=== PATIENT | male | born 1950 | race Caucasian/White ===

== ENCOUNTER 2017-09-01 10:21 | Day surgery (SDC) | payer MEDICARE ==
--- NOTE | 2017-08-30 09:18 | CR ---
PREOPERATIVE EVALUATION CONSULTATION: DATE OF CONSULTATION: 07/17/2017 CONSULTING PHYSICIAN: Dr. Hernesto Juarez MD. SURGEON: Dr. Shan Vogt. PROPOSED SURGERY: Cataract extraction, left eye to be completed on 09/01/2017, right eye to be completed on 09/08/2017. CHIEF COMPLAINT: Decreased vision. HISTORY OF PRESENT ILLNESS: This is a very pleasant 67-year-old patient of [facility] who presents today for preoperative evaluation consultation. The patient noted he feels well. Denies any new symptoms or concerns. The patient has no known cardiac issues. He, however, has a number of risk factors including well controlled diabetes, last hemoglobin A1c 6.1, continued cigarette smoking at approximately five cigarettes a day, well treated hypertension and hyperlipidemia. The patient has no history of asthma or obstructive sleep apnea. Again, he is a cigarette smoker. He denies any family history of malignant hyperthermia or other complications of anesthesia. The patient is on a proton pump inhibitor (PPI), however and was found to have gastritis 05/11/2012 in esophagogastroduodenoscopy (EGD). But otherwise, denies any problems on his present medication and is doing well overall. Medical issues were evaluated including his gastroesophageal reflux disease (GERD) symptoms for which he is attempting to wean off PPI, hypertension, diabetes, hyperlipidemia, all appear to be stable. PAST MEDICAL HISTORY: Type 2 diabetes - well controlled. Hemoglobin A1c is 61. Hypertension. Hyperlipidemia. Tobacco abuse. History of gout. History of shingles. Gastroesophageal reflux disease with history of gastritis on EGD 05/11/2012. PAST SURGICAL HISTORY: Tonsillectomy in 1950. Left bunionectomy with Dr. Balbuena. Melanoma in situ left right arm with Dr. Barrett. He follows with Dr. Alvarado. Right knee arthroscope, late . Colonoscopy 09/14/2007. EGD 05/11/2012. MEDICATIONS: - omeprazole 40 mg by mouth daily - transitioning to Pepcid 20 mg daily - I vitamins - Norvasc 5 mg daily - lisinopril 20 mg twice a day - Glucophage XR 500 mg twice a day - simvastatin 20 mg nightly - aspirin 81 mg by mouth daily ALLERGIES: No known drug allergies. FAMILY HISTORY: Mother from some type of cancer, unclear of what kind. Father of lung cancer. SOCIAL HISTORY: The patient is retired. 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 He lives with his , Amairani. They have three grown children. He smokes about five cigarettes a day. He does consume about 3-4 beers a week. No regular exercise. REVIEW OF SYSTEMS: Per history of present illness (HPI). Otherwise 10-system review is negative. PHYSICAL EXAMINATION: VITAL SIGNS: Blood pressure 138/70, pulse 70. He is 5 foot 8 inches, 177 pounds, BMI 26.9. GENERAL: The patient appears at baseline health. He is well, smiling and interactive in no acute distress, nontoxic, alert and oriented times three. HEENT: Pupils equal round, and react to light and accommodation. Extraocular motions intact. No lesion or yellow conjunctiva. Head is atraumatic, normocephalic. Oral cavity/oropharynx are benign. Neck is supple, no lymphadenopathy or thyromegaly. External ears are benign. LUNGS: Clear to auscultation bilaterally. No rales, rhonchi or wheezes. HEART: Regular rate and rhythm. S1, S2. No significant murmur. ABDOMEN: Soft, nontender, nondistended. No organomegaly. EXTREMITIES: No clubbing, cyanosis or edema. NEUROLOGIC: Exam is completely nonfocal. He is alert and oriented times three. Speech is fluent. PREOP TESTING: No preop labs were completed. EKG was completed and shows normal sinus rhythm. No significant abnormalities on 08/17/2017. Recent labs in July 2017 were generally benign. ASSESSMENT/PLAN: 1. Preoperative evaluation consultation: At this point in time, aside from the risks as mentioned in the HPI, the patient otherwise has no active respiratory or pulmonary disease at this point in time. No significant issues to anesthesia in the past. This is a very low risk surgery in a low to intermediate risk patient. He appears to be optimized for surgical intervention. . 2. Cataracts: The patient looks forward to improved vision in undergoing surgery. Preoperative medications including his aspirin will be dictated by the surgeon. 3. Type 2 diabetes, well controlled. Last hemoglobin A1c 6.1. 4. Hypertension: Well controlled on present medication. Will monitor. 5. Gastroesophageal reflux disease, history of gastritis 2011. Has been doing well on PPI but is working on weaning to an H2 estuardo. 6. History of melanoma in situ - is noted that he recently saw Dr. 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 7. Nicotine dependence - discussed the importance of quitting smoking once again. He understands and not interested in assistance at this time. 8. Hyperlipidemia: Doing well on simvastatin. Will continue to monitor. 9. Ongoing care: I am going to see the patient again as scheduled. However, he does appear to be optimized for surgical intervention for cataracts to be completed bilaterally by Dr. Vogt as noted above. If there are any questions or concerns, please call me at [phone].
[~2017-09-01] VITALS: Ht 172.7 cm; Wt 79.9 kg
[~2017-09-01 10:21] MED LIST: AMLO5TAB2 PO; ASPI81TA85 PO; LISI-538 PO; METF500T4 PO; OFLOXACIN 0.3 % (OCUFLOX) OPTH SOL 5ML OS ONE; OMEP40CA2 PO; PHENYLEPHRINE 2.5% OPHTH SOL 2ML OS ONE; PRESCAP6 PO; PROPARACAINE 0.5% OPHTH SOL 15ML OS ONE; SIMV20TA2 PO; TROPICAMIDE 1% OPHTH SOLN 2ML OS ONE
[2017-09-01] MEDS ORDERED: DUOVISC (0.50ML VISCOAT/0.55ML PROVISC) OPHTH KIT As Ordered ONE ×2 (13:27→13:40)
[2017-09-01] MEDS ORDERED: POVIDONE-IODINE 5% OPHTH PREP SOL 30ML As Ordered ONE ×2 (13:27→13:40)
[2017-09-01] MEDS ORDERED: ACETYLCHOLINE OPHTH SOLN 1% 2ML (MIOCHOL-E) As Ordered ONE ×2 (13:27→13:40)
[2017-09-01] MEDS ORDERED: LIDOCAINE 0.75%/EPINEPHRINE 0.025% IN BSS 1ML SYR INTRACAMERAL (OR ONLY) As Ordered ONE ×2 (13:27→13:40)
[2017-09-01] MEDS ORDERED: CEFUROXIME 1MG/0.1ML INTRACAMERAL INJ As Ordered ONE ×2 (13:27→13:40)
[2017-09-01] MEDS ORDERED: BALANCED SALT IRRIGATION SOLUTION 500ML BAG (FOR OR EYE MACHINE) As Ordered ONE (13:27)
[2017-09-01] MEDS ORDERED: MIDAZOLAM INJ 2 MG/2 ML VIAL (J2250) As Ordered ONE (13:48)
[2017-09-01] MEDS ORDERED: fentaNYL 100 MCG/2 ML INJECTION (J3010) As Ordered ONE (13:48)
[2017-09-01 15:00] VITALS: BP 134/70
--- NOTE | 2017-09-02 14:49 | RO ---
DATE OF PROCEDURE: 09/01/2017 PREOPERATIVE DIAGNOSIS: Visually significant nuclear sclerotic cataract left eye. POSTOPERATIVE DIAGNOSIS: Visually significant nuclear sclerotic cataract left eye. PROCEDURE: Cataract extraction with use of phacoemulsification and placement of intraocular lens, AU00T0, 12.5, left eye. SURGEON: Shan Vogt DO PAYMENT REP: ANESTHESIA: Local with monitored anesthesia care (MAC). COMPLICATIONS: None. POSTOPERATIVE CONDITION: Stable. INDICATION FOR SURGERY: Blurred vision left eye affecting patient's activities of daily living. DESCRIPTION OF PROCEDURE: The patient was seen in the preoperative area and properly identified. The correct operative eye was identified and marked. Attention was turned to that eye. The patient received topical antibiotics in the preoperative area. The patient then received topical dilating drops consisting of tropicamide and phenylephrine. The patient was then transferred to the operating room. The correct side was re-identified. The patient received topical anesthetics and antibiotics on the surface of the eye. The eye was prepped and draped in a sterile fashion. The upper and lower eyelids were isolated with Tegaderm tape, and the lids were held open with an adjustable speculum. Using a sideport blade, a paracentesis incision was made. Intraocular preservative-free lidocaine was then injected into the anterior chamber. Viscoelastic was then injected into the anterior chamber through the paracentesis. Using a 2.65 mm sharp-tipped keratome, the anterior chamber was entered via a temporal clear corneal incision. A continuous curvilinear capsulorrhexis was created with the aid of a 26-gauge cystotome and Utrata forceps. Hydrodissection was performed with balanced salt solution (BSS) on a blunt cannula until the nucleus was freely mobile. The crystalline lens was phacoemulsified and aspirated. Additional cohesive viscoelastic was placed into the capsular bag to deepen it. An AU00T0 lens was placed into the capsular bag and confirmed by visualizing the continuous curvilinear capsulorrhexis. Additional irrigation and aspiration was used to remove cortical material and remaining viscoelastic. The clear corneal incision was hydrated with BSS on a blunt cannula. The lens was well positioned. The incisions were then tested for leaks and found to be negative. The eye was then palpated for appropriate pressure and adjusted accordingly with BSS. The eyelid speculum was carefully removed. TobraDex ointment was placed in the eye. An eye patch and shield were then secured over the eye. The patient tolerated the procedure well and was discharged to the recovery unit in a stable condition.
== END 2017-09-01 15:11 | disposition home or self-care (01) ==
LOC: M SDC 10:21
PROVIDERS: ATTEND Ophthalmology
DX: H25.12 Age-related nuclear cataract, left eye (principal); I10 Essential (primary) hypertension; E78.4 Other hyperlipidemia; E11.9 Type 2 diabetes mellitus without complications; F17.210 Nicotine dependence, cigarettes, uncomplicated; Z79.899 Other long term (current) drug therapy
CPT/HCPCS: 66984; J2250; J3010; V2632

== ENCOUNTER 2017-09-08 06:56 | Day surgery (SDC) | payer MEDICARE ==
[~2017-09-08] VITALS: Ht 172.7 cm; Wt 81.2 kg
[~2017-09-08 06:56] MED LIST changes: -OFLOXACIN 0.3 % (OCUFLOX) OPTH SOL 5ML OS ONE; -PHENYLEPHRINE 2.5% OPHTH SOL 2ML OS ONE; -PROPARACAINE 0.5% OPHTH SOL 15ML OS ONE; -TROPICAMIDE 1% OPHTH SOLN 2ML OS ONE
[2017-09-08] MEDS ORDERED: PHENYLEPHRINE 2.5% OPHTH SOL 2ML OD ONE (07:00)
[2017-09-08] MEDS ORDERED: TROPICAMIDE 1% OPHTH SOLN 2ML OD ONE (07:00)
[2017-09-08] MEDS ORDERED: OFLOXACIN 0.3 % (OCUFLOX) OPTH SOL 5ML OD ONE (07:00)
[2017-09-08] MEDS ORDERED: PROPARACAINE 0.5% OPHTH SOL 15ML OD ONE (07:00)
[2017-09-08] MEDS ORDERED: ACETYLCHOLINE OPHTH SOLN 1% 2ML (MIOCHOL-E) As Ordered ONE (08:14)
[2017-09-08] MEDS ORDERED: LIDOCAINE 0.75%/EPINEPHRINE 0.025% IN BSS 1ML SYR INTRACAMERAL (OR ONLY) As Ordered ONE (08:14)
[2017-09-08] MEDS ORDERED: CEFUROXIME 1MG/0.1ML INTRACAMERAL INJ As Ordered ONE (08:14)
[2017-09-08] MEDS ORDERED: DUOVISC (0.50ML VISCOAT/0.55ML PROVISC) OPHTH KIT As Ordered ONE (08:15)
[2017-09-08] MEDS ORDERED: MIDAZOLAM INJ 2 MG/2 ML VIAL (J2250) As Ordered ONE (08:37)
[2017-09-08] MEDS ORDERED: fentaNYL 100 MCG/2 ML INJECTION (J3010) As Ordered ONE (08:38)
[2017-09-08] MEDS ORDERED: BALANCED SALT IRRIGATION SOLUTION 500ML BAG (FOR OR EYE MACHINE) As Ordered ONE (08:50)
[2017-09-08] MEDS ORDERED: POVIDONE-IODINE 5% OPHTH PREP SOL 30ML As Ordered ONE (08:50)
[2017-09-08 09:30] VITALS: BP 127/72
--- NOTE | 2017-09-09 20:22 | RO ---
DATE OF PROCEDURE: 09/08/2017 PREOPERATIVE DIAGNOSIS: Visually significant nuclear sclerotic cataract right eye. POSTOPERATIVE DIAGNOSIS: Visually significant nuclear sclerotic cataract right eye. PROCEDURE: Cataract extraction with use of phacoemulsification and placement of intraocular lens, AU00T0, 14.0 diopters, right eye. SURGEON: Shan Vogt DO RIBBON HAND: ANESTHESIA: Local with monitored anesthesia care (MAC). COMPLICATIONS: None. POSTOPERATIVE CONDITION: Stable. INDICATION FOR SURGERY: Blurred vision right eye affecting patient's activities of daily living. DESCRIPTION OF PROCEDURE: The patient was seen in the preoperative area and properly identified. The correct operative eye was identified and marked. Attention was turned to that eye. The patient received topical antibiotics in the preoperative area. The patient then received topical dilating drops consisting of tropicamide and phenylephrine. The patient was then transferred to the operating room. The correct side was re-identified. The patient received topical anesthetics and antibiotics on the surface of the eye. The eye was prepped and draped in a sterile fashion. The upper and lower eyelids were isolated with Tegaderm tape, and the lids were held open with an adjustable speculum. Using a sideport blade, a paracentesis incision was made. Intraocular preservative-free lidocaine was then injected into the anterior chamber. Viscoelastic was then injected into the anterior chamber through the paracentesis. Using a 2.65 mm sharp-tipped keratome, the anterior chamber was entered via a temporal clear corneal incision. A continuous curvilinear capsulorrhexis was created with the aid of a 26-gauge cystotome and Utrata forceps. Hydrodissection was performed with balanced salt solution (BSS) on a blunt cannula until the nucleus was freely mobile. The crystalline lens was phacoemulsified and aspirated. Additional cohesive viscoelastic was placed into the capsular bag to deepen it. A AU00T0, 14.0 diopters lens was placed into the capsular bag and confirmed by visualizing the continuous curvilinear capsulorrhexis. Additional irrigation and aspiration was used to remove cortical material and remaining viscoelastic. The clear corneal incision was hydrated with BSS on a blunt cannula. The lens was well positioned. The incisions were then tested for leaks and found to be negative. The eye was then palpated for appropriate pressure and adjusted accordingly with BSS. The eyelid speculum was carefully removed. TobraDex ointment was placed in the eye. An eye patch and shield were then secured over the eye. The patient tolerated the procedure well and was discharged to the recovery unit in a stable condition.
== END 2017-09-08 09:46 | disposition home or self-care (01) ==
LOC: M SDC 06:56
PROVIDERS: ATTEND Ophthalmology
DX: H25.11 Age-related nuclear cataract, right eye (principal); E11.9 Type 2 diabetes mellitus without complications; I10 Essential (primary) hypertension; E78.5 Hyperlipidemia, unspecified; K21.9 Gastro-esophageal reflux disease without esophagitis; Z79.82 Long term (current) use of aspirin; Z79.899 Other long term (current) drug therapy; F17.210 Nicotine dependence, cigarettes, uncomplicated
CPT/HCPCS: 66984; J2250; J3010; V2632

== ENCOUNTER 2018-11-29 09:25 | Day surgery (SDC) | payer MEDICARE ==
[~2018-11-29] VITALS: Ht 172.7 cm; Wt 75.7 kg
[~2018-11-29 09:25] MED LIST changes: -AMLO5TAB2 PO; +AMLO5TAB6 PO; +NS 1,000 ML IV ONE
[2018-11-29] MEDS ORDERED: LIDOCAINE 2% INJ 100 MG/5 ML SDV (FOR ANES.) As Ordered ONE (11:04)
[2018-11-29] MEDS ORDERED: PROPOFOL 200 MG/20 ML VIAL As Ordered ONE (11:04)
--- NOTE | 2018-11-29 11:34 | ROOR ---
Patient Name: Jonathan Mariee Procedure Date: 11/29/2018 11:15 AM Date of : 1950 Age: 68 Room: [facility] Gender: Male Note Status: Finalized Procedure: Upper Endoscopy + Biopsies + Balloon Dilatation Indications: Dysphagia Providers: Juan Carlos Vogt MD Referring MD: Hernesto Juarez MD Requesting Provider: Medicines: Monitored Anesthesia Care Complications: No immediate complications. Procedure: Pre-Anesthesia Assessment: - The heart rate, respiratory rate, oxygen saturations, blood pressure, adequacy of pulmonary ventilation, and response to care were monitored throughout the procedure. The Endoscope was introduced through the mouth, and advanced to the second part of duodenum. The upper GI endoscopy was accomplished without difficulty. The patient tolerated the procedure well. Findings: The Z-line was regular and was found 40 cm from the incisors. A TTS dilator was passed through the scope. Dilation with an 18-19-20 mm balloon dilator was performed to 20 mm at the gastroesophageal junction. Localized mild inflammation characterized by congestion (edema) and erythema was found in the gastric antrum. Biopsies were taken with a cold forceps for Helicobacter pylori testing. The exam of the duodenum was otherwise normal. Impression: - Z-line regular, 40 cm from the incisors. - Mucosal changes suspicious for gastritis. Biopsied. - Dilation performed at the gastroesophageal junction. - The examination was otherwise normal. Recommendation: - Patient has a contact number available for emergencies. The signs and symptoms of potential delayed complications were discussed with the patient. Return to normal activities tomorrow. Written discharge instructions were provided to the patient. - Resume previous diet. - Follow an antireflux regimen. - Continue present medications. - Await pathology results. - Telephone GI clinic for pathology results in 1 week. - Return to referring physician. - The findings and recommendations were discussed with the patient's family. Juan Carlos Vogt MD Juan Carlos Vogt MD 11/29/2018 11:33:56 AM This report has been signed electronically. Number of Addenda: 0 Note Initiated On: 11/29/2018 11:15 AM Estimated Blood Loss: Estimated blood loss: none.
--- NOTE | 2018-11-29 11:49 | ROOR ---
Patient Name: Jonathan Mariee Procedure Date: 11/29/2018 11:16 AM Date of : 1950 Age: 68 Room: [facility] Gender: Male Note Status: Finalized Procedure: Total Colonoscopy to Cecum + Cold Snare Polypectomy Indications: Screening for colorectal malignant neoplasm Providers: Juan Carlos Vogt MD Referring MD: Hernetso Juarez MD Requesting Provider: Medicines: Monitored Anesthesia Care Complications: No immediate complications. Procedure: Pre-Anesthesia Assessment: - The heart rate, respiratory rate, oxygen saturations, blood pressure, adequacy of pulmonary ventilation, and response to care were monitored throughout the procedure. The Colonoscope was introduced through the anus and advanced to the cecum, identified by appendiceal orifice and ileocecal valve. The colonoscopy was performed without difficulty. The patient tolerated the procedure well. The quality of the bowel preparation was excellent. Findings: The perianal and digital rectal examinations were normal. Non-bleeding internal hemorrhoids were found during retroflexion. The hemorrhoids were small and Grade I (internal hemorrhoids that do not prolapse). Multiple small and large-mouthed diverticula were found in the recto-sigmoid colon, sigmoid colon and descending colon. A small polyp was found at 20 cm proximal to the anus. The polyp was sessile. The polyp was removed with a cold snare. Resection and retrieval were complete. The exam was otherwise without abnormality on direct and retroflexion views. Impression: - Non-bleeding internal hemorrhoids. - Diverticulosis in the recto-sigmoid colon, in the sigmoid colon and in the descending colon. - One small polyp at 20 cm proximal to the anus, removed with a cold snare. Resected and retrieved. - The examination was otherwise normal on direct and retroflexion views. - The exam was otherwise normal to the cecum. Recommendation: - Patient has a contact number available for emergencies. The signs and symptoms of potential delayed complications were discussed with the patient. Return to normal activities tomorrow. Written discharge instructions were provided to the patient. - High fiber diet. - Discharge patient to home. - Continue present medications. - Await pathology results. - Telephone GI clinic for pathology results in 1 week. - Repeat colonoscopy for surveillance based on pathology results. - Return to referring physician. - The findings and recommendations were discussed with the patient's family. Juan Carlos Vogt MD Juan Carlos Vogt MD 11/29/2018 11:49:36 AM This report has been signed electronically. Number of Addenda: 0 Note Initiated On: 11/29/2018 11:16 AM Estimated Blood Loss: Estimated blood loss: none.
[2018-11-29 12:15] VITALS: BP 117/72
== END 2018-11-29 12:29 | disposition home or self-care (01) ==
LOC: M OPP 09:25
PROVIDERS: ATTEND Internal Medicine Gastroenterology
DX: Z12.11 Encounter for screening for malignant neoplasm of colon (principal); K64.0 First degree hemorrhoids; D12.6 Benign neoplasm of colon, unspecified; K57.30 Diverticulosis of large intestine without perforation or abscess without bleeding; K31.89 Other diseases of stomach and duodenum; R13.10 Dysphagia, unspecified; R12 Heartburn; F17.210 Nicotine dependence, cigarettes, uncomplicated; Z79.82 Long term (current) use of aspirin; Z79.84 Long term (current) use of oral hypoglycemic drugs; Z79.899 Other long term (current) drug therapy

== ENCOUNTER → 2019-05-28 | Outpatient (REF) | payer MEDICARE ==
[~2019-05-28] MED LIST changes: -NS 1,000 ML IV ONE
[2019-05-28 13:48] LABS: BASO % 0.4 % (0.0-1.0); EOS # 0.1 10^3/uL (0.0-0.50); EOS % 0.7 % (0.0-3.0); HEMATOCRIT 40.1 % (42.0-52.0); HEMOGLOBIN 13.9 g/dl (13.5-17.5); LYMPH # 1.7 10^3/uL (1.5-4.5); LYMPH % 22.8 % (24.0-44.0); MEAN CORPUSCULAR HEMOGLOBIN 33.8 pg (27.0-33.0); MEAN CORPUSCULAR HGB CONC 34.7 g/dl (32.0-36.5); MEAN CORPUSCULAR VOLUME 97.6 fl (80.0-96.0); MONO # 0.8 10^3/uL (0.0-0.8); MONO % 10.2 % (0.0-5.0); NEUTROPHILS # 4.8 10^3/uL (1.8-7.7); NEUTROPHILS % 65.4 % (36.0-66.0); RED BLOOD COUNT 4.11 10^6/uL (4.30-6.10); WHITE BLOOD COUNT 7.3 10^3/uL (4.0-10.0)
[2019-05-28 14:02] LABS: ALBUMIN 4.3 GM/DL (3.2-5.2); ALT/SGPT 34 U/L (12-78); BILIRUBIN,TOTAL 0.4 MG/DL (0.2-1.0); BLOOD UREA NITROGEN 28 MG/DL (7-18); CALCIUM LEVEL 9.5 MG/DL (8.8-10.2); CARBON DIOXIDE LEVEL 27 MEQ/L (21-32); CHLORIDE LEVEL 104 MEQ/L (98-107); CREATININE FOR GFR 1.31 MG/DL (0.70-1.30); GLOMERULAR FILTRATION RATE 57.6 (>42); GLUCOSE, FASTING 140 MG/DL (70-100); POTASSIUM SERUM 4.7 MEQ/L (3.5-5.1); SODIUM LEVEL 140 MEQ/L (136-145); TOTAL PROTEIN 7.5 GM/DL (6.4-8.2)
[2019-05-29 13:34] LABS: ALBUMIN 4.67 GM/DL (3.29-5.55); ALBUMIN % 62.2 % (55.8-66.1); ALPHA-1-GLOBULIN % 3.9 % (2.9-4.9); ALPHA-1-GLOBULINS 0.29 GM/DL (0.17-0.41); ALPHA-2-GLOBULINS 0.81 GM/DL (0.42-0.99); ALPHA-2-GLOBULINS % 10.8 % (7.1-11.8); BETA-1-GLOBULINS 0.44 GM/DL (0.28-0.60); BETA-1-GLOBULINS % 5.9 % (4.7-7.2); BETA-2-GLOBULINS % 5.2 % (3.2-6.5)
[2019-05-29 13:35] LABS: BETA-2-GLOBULINS 0.39 GM/DL (0.19-0.55)
== END ==
LOC: M LABNEURO 10:27
PROVIDERS: ATTEND Psychiatry & Neurology Neurology
DX: R42 Dizziness and giddiness (principal)

== ENCOUNTER → 2019-07-03 | Outpatient (CLI) | payer MEDICARE ==
[~2019-07-03] MED LIST changes: +METF-791 PO; -METF500T4 PO; +MIDAZOLAM INJ 2 MG/2 ML VIAL (J2250) As Ordered ONE; +PROPOFOL 200 MG/20 ML VIAL ONE
[2019-07-03 12:55] VITALS: BP 146/87
--- NOTE | 2019-07-03 15:11 | REP ---
MRI brain without contrast: History: Headache and dizziness. Exam done with conscious sedation. No comparison brain imaging. Findings: No bony calvarial defect is seen. Craniocervical junction and upper cervical cord are unremarkable. There is a mucous retention cyst in the right maxillary sinus. Mucosal thickening is visible in the ethmoid air cells bilaterally mild in degree. No intraorbital abnormality is appreciated. There is generalized volume loss. There is a tiny old lacunar infarct in the thalamus on the right. There are small vessel microvascular changes in the periventricular white matter of the frontal and parietal lobes and occipital lobes bilaterally. There is no evidence of intracranial hemorrhage. No mass, infarct, or midline shift is seen. Diffusion weighted scans show no evidence of restricted diffusion. Impression: Generalized volume loss. Old lacunar infarct in the right thalamus. Small vessel atherosclerotic changes. No acute intracranial lesion seen. Electronically Signed by Ha Oropeza MD 07/03/2019 03:32 P
== END ==
LOC: M SDC 09:48
PROVIDERS: ATTEND Psychiatry & Neurology Neurology
DX: G31.9 Degenerative disease of nervous system, unspecified (principal); Z86.73 Personal history of transient ischemic attack (TIA), and cerebral infarction without residual deficits; I67.2 Cerebral atherosclerosis; R42 Dizziness and giddiness
CPT/HCPCS: 70551; 99152; 99153; J2250

== ENCOUNTER 2021-03-31 20:11 | Inpatient (IN) | payer MEDICARE ==
[~2021-03-31] VITALS: Ht 172.7 cm; Wt 74.0 kg
[~2021-03-31 20:11] MED LIST changes: +AMLO1TAB24 PO; -AMLO5TAB6 PO; -ASPI81TA85 PO; +ASPI81TA86 PO; -LISI-538 PO; +LISI20TA33 PO; -METF-791 PO; +METF-838 PO; -MIDAZOLAM INJ 2 MG/2 ML VIAL (J2250) As Ordered ONE; -OMEP40CA2 PO; +OMEP40CA4 PO; -PROPOFOL 200 MG/20 ML VIAL ONE; -SIMV20TA2 PO; +SIMV20TA22 PO
--- NOTE | 2021-03-31 20:48 | REPVR ---
PROCEDURE INFORMATION: Exam: CT Head Without Contrast Exam date and time: 03/31/2021 8:34 PM Age: 70 years old Clinical indication: Other: CVA; Additional info: CVA - nursing interventions must not delay CT TECHNIQUE: Imaging protocol: Computed tomography of the head without contrast. Radiation optimization: All CT scans at this facility use at least one of these dose optimization techniques: automated exposure control; mA and/or kV adjustment per patient size (includes targeted exams where dose is matched to clinical indication); or iterative reconstruction. Other technique: STROKE PROTOCOL was implemented. COMPARISON: MRI-Brain without Contrast 07/03/2019 10:49 AM FINDINGS: Brain: There is periventricular white matter lucency consistent with chronic microvascular disease. There is an old right thalamic lacunar infarct. No acute infarct is identified. There is no hemorrhage or extra-axial collection. There is no mass. Cerebral ventricles: Ventricular prominence on the basis of volume loss Paranasal sinuses: Visualized sinuses are unremarkable. No fluid levels. Mastoid air cells: Visualized mastoid air cells are well aerated. Bones/joints: Unremarkable. No acute fracture. Soft tissues: Unremarkable. IMPRESSION: 1. There is chronic microvascular disease with an old right thalamic lacunar infarct. 2. No acute intracranial lesion or injury ASSESSMENT: ASPECTS ([facility] Stroke Program Early CT Score) is 10. Electronically signed by: William Momin On 03/31/2021 20:47:18 PM
[2021-03-31] MEDS: HumaLOG INSULIN (NovoLOG) PER UNIT SC SCH (21:00)
--- NOTE | 2021-03-31 21:02 | REPVR ---
PROCEDURE INFORMATION: Exam: XR Chest Exam date and time: 03/31/2021 8:52 PM Age: 70 years old Clinical indication: Other: CVA TECHNIQUE: Imaging protocol: XR of the chest. Views: 1 view. COMPARISON: No relevant prior studies available. FINDINGS: Lungs: Unremarkable. No consolidation. Pleural spaces: Unremarkable. No pleural effusion. No pneumothorax. Heart/Mediastinum: Unremarkable. No cardiomegaly. Bones/joints: Unremarkable. IMPRESSION: No acute findings. Electronically signed by: William Momin On 03/31/2021 21:02:17 PM
[2021-03-31 21:11] LABS: BASO % 0.5 % (0.0-1.0); EOS # 0.1 10^3/uL (0.0-0.5); EOS % 1.3 % (0.0-3.0); HEMATOCRIT 36.2 % (42.0-52.0); HEMOGLOBIN 12.4 g/dl (13.5-17.5); LYMPH # 2.1 10^3/uL (1.5-5.0); LYMPH % 27.7 % (24.0-44.0); MEAN CORPUSCULAR HEMOGLOBIN 32.1 pg (27.0-33.0); MEAN CORPUSCULAR HGB CONC 34.3 g/dl (32.0-36.5); MEAN CORPUSCULAR VOLUME 93.8 fl (80.0-96.0); MONO # 0.8 10^3/uL (0.0-0.8); NEUTROPHILS # 4.5 10^3/uL (1.5-8.5); NEUTROPHILS % 59.1 % (36.0-66.0); PLATELET COUNT, AUTOMATED 243 10^3/uL (150-450); RED BLOOD COUNT 3.86 10^6/uL (4.30-6.10); WHITE BLOOD COUNT 7.6 10^3/uL (4.0-10.0)
[2021-03-31 21:24] LABS: INR 1.05; PARTIAL THROMBOPLASTIN TIME 25.3 SECONDS (24.2-38.5); PROTHROMBIN TIME 13.9 SECONDS (12.5-14.3)
[2021-03-31 21:39] LABS: CK-MB VALUE MASS 1.3 NG/ML (<3.6); CPK CREATINE PHOSPHOKINASE 49 U/L (39-308); MB/CK RELATIVE INDEX 2.65 (< OR =4); TROPONIN I < 0.02 NG/ML (< 0.10)
[2021-03-31] MEDS ORDERED: CAPTOpril 6.25 MG PER 1/2 TABLET PO SCH (22:25)
[2021-03-31] MEDS ORDERED: ASPIRIN 81 MG CHEW TABLET PO ONE (22:25)
[2021-03-31] MEDS ORDERED: ACETAMINOPHEN TAB 650MG DOSE (2X325MG) PO PRN (22:25)
[2021-03-31] MEDS ORDERED: GLUCOSE 4GM CHEW TABLET PO PRN (22:35)
[2021-03-31] MEDS ORDERED: GLUCAGON INJ 1MG VIAL SC PRN (22:35)
[2021-03-31] MEDS ORDERED: DEXTROSE 50% 50 ML SYRINGE IV PRN (22:35)
[2021-03-31] MEDS ORDERED: hydrALAZINE 20MG/ML 1ML VIAL (J0360 PER 20MG) IV PRN (22:35)
[2021-03-31] MEDS ORDERED: OCUVTAB4 PO (22:38)
[2021-03-31] MEDS ORDERED: ASPI-161 PO (22:38)
[2021-03-31 22:46] LABS: RSV AMPLIFICATION NEGATIVE (NEGATIVE)
--- NOTE | 2021-03-31 22:50 | HPEPDOC ---
General Date of Admission 03/31/21 Date of Service: Mar 31, 2021 Chief Complaint The patient is a 70-year-old male admitted with a reason for visit of Stroke Symptoms. Source: Patient History of Present Illness Patient is 70 years old male with past medical history of type 2 diabetes, hypertension, hyperlipidemia, active smoker, CVA in the past presented to the hospital with left leg weakness. Patient stated that in the morning he started feeling left leg weakness when he walk, he started shuffling left leg. Also he noticed that he has a left mouth droop. He reported that left leg weakness resolved after few hours. He reported that he continues to have left mouth droop with left mouth numbness. In ER patient was found to have elevated blood pressure of 220/110, on CT head there is chronic microvascular disease with an old right thalamic lacunar infarct. No acute infarct. Patient does not have leukocytosis, creatinine 1.3. Dr Fortune was contacted by ER physician, he recommended aspirin 325 mg, MRI, MRA and duplex carotid. Home Medications Scheduled (Preservision Areds 2) 1 Cap Cap, 1 CAP PO QHS, (Reported) Aspirin (Aspir 81) 81 Mg Tab, 81 MG PO Q2D, (Reported) Metformin HCl (Metformin HCl ER) 500 Mg Tab, 500 MG PO BID, (Reported) Omeprazole (Omeprazole) 40 Mg Cap, 40 MG PO QAM, (Reported) Simvastatin (Simvastatin) 20 Mg Tab, 20 MG PO QAM, (Reported) Allergies Coded Allergies: No Known Allergies (Verified , 11/22/18) Past Medical History Medical History Type 2 diabetes Hypertension. Hyperlipidemia. Tobacco abuse. History of gout. History of shingles. Gastroesophageal reflux disease with history of gastritis on EGD 05/11/2012. Surgical History Tonsillectomy in 1950. Left bunionectomy with Dr. Balbuena. Melanoma in situ left right arm with Dr. Barrett. He follows with Dr. Alvarado. Right knee arthroscope, late . Colonoscopy 09/14/2007. EGD 05/11/2012. Family History Mother from some type of cancer, unclear of what kind. Father of lung cancer. Social History * Smoker: current smoker Alcohol: occationally Drugs: denies A-FIB/CHADSVASC A-FIB History Current/History of A-Fib/PAF?: No Current PO Anticoag Therapy: No Review of Systems Constitutional: Denies: Chills, Fever Eyes: Denies: Pain ENT: Denies: Head Aches Skin: Denies: Rash, Lesions Pulmonary: Denies: Dyspnea Cardiovascular: Denies: Chest Pain Gastrointestinal: Denies: Nausea, Vomiting Genitourinary: Denies: Dysuria Hematologic: Denies: Bruising Endocrine: Denies: Polydipsia, Polyphagia Musculoskeletal: Denies: Neck Pain Neurological: Reports: Weakness, Numbness, Incoordination Psych: Reports: Mood Normal Physical Examination General Exam: Positive: Alert, Cooperative Eye Exam: Positive: PERRLA ENT Exam: Positive: Atraumatic Neck Exam: Positive: Supple; Negative: JVD Chest Exam: Positive: Clear to auscultation Heart Exam: Positive: Rate Normal Telemetry: Positive: No significant arrhythmia Abdomen Exam: Positive: Normal bowel sounds Extremity Exam: Negative: Clubbing, Cyanosis Skin Exam: Positive: Nl turgor and temperature Neuro Exam: Positive: Reflexes 2+, Other (Left mouth droop) Psych Exam: Positive: Oriented x 3 Vital Signs Vital Signs Date Time Temp Pulse Resp B/P (MAP) Pulse Ox O2 Delivery O2 Flow Rate FiO2 03/31/21 22:16 225/112 (149) 03/31/21 22:11 61 97 03/31/21 20:12 97.8 16 Laboratory Data Labs 24H Laboratory Tests 2 03/31/21 20:45: Bedside Glucose (Misc Panel) 134H 03/31/21 20:46: Immature Granulocyte % (Auto) 0.4, Neutrophils (%) (Auto) 59.1, Lymphocytes (%) (Auto) 27.7, Monocytes (%) (Auto) 11.0H, Eosinophils (%) (Auto) 1.3, Basophils (%) (Auto) 0.5, Neutrophils # (Auto) 4.5, Lymphocytes # (Auto) 2.1, Monocytes # (Auto) 0.8, Eosinophils # (Auto) 0.1, Basophils # (Auto) 0.0, Nucleated Red Blood Cells % (auto) 0.0, Prothrombin Time 13.9, Prothromb Time International Ratio 1.05, Activated Partial Thromboplast Time 25.3, Total Creatine Kinase 49, Creatine Kinase MB 1.3, Creatine Kinase MB Relative Index 2.65, Troponin I < 0.02 03/31/21 20:47: POC Glucose (Misc Panel) 135H, POC Sodium (Misc Panel) 145, POC Potassium (Misc Panel) 4.0, POC Chloride (Misc Panel) 105, POC Total CO2 (Misc Panel) 25.0, POC Blood Urea Nitrogen (Misc Panel 25, POC Ionized Calcium (Misc Panel) 4.6, POC Creatinine (Misc Panel) 1.4H, POC Hematocrit (Misc Panel) 35.0L 03/31/21 20:55: POC Prothrombin Time (Misc) 12.5, POC INR (Misc) 1.0 03/31/21 21:50: CBC/BMP Laboratory Tests 03/31/21 20:46 Assessment/Plan Patient is 70 years old male with past medical history of type 2 diabetes, hypertension, hyperlipidemia, active smoker, CVA in the past presented to the hospital with left leg weakness. Patient stated that in the morning he started feeling left leg weakness when he walk, he started shuffling left leg. Also he noticed that he has a left mouth droop. He reported that left leg weakness resolved after few hours. He reported that he continues to have left mouth droop with left mouth numbness. In ER patient was found to have elevated blood pressure of 220/110, on CT head there is chronic microvascular disease with an old right thalamic lacunar infarct. No acute infarct. Patient does not have leukocytosis, creatinine 1.3. Dr Fortune was contacted by ER physician, he recommended aspirin 325 mg, MRI, MRA and duplex carotid. Problems (1) CVA (cerebral vascular accident) Status: Acute Problem Text: Patient has multiple risk factors including previous stroke, hypertension, smoking history, hyperlipidemia MRI, MRA, duplex carotid Echo Aspirin 325 mg daily Neuro check every 4 hours I changed simvastatin to high potency atorvastatin 40 mg PT/OT (2) Hypertensive urgency Status: Acute Problem Text: Captopril 6.25 mg Telemetry Hydralazine IV with parameters Permissive hypertension for next 6 to 8 hours, keep in the range of 160-170 (3) Diabetes mellitus Status: Chronic Problem Text: Insulin sliding scale Diabetes diet (4) Hyperlipidemia Status: Chronic Problem Text: Continue statin Plan / VTE VTE Prophylaxis Ordered?: Yes RUSTY LEÓN DO Mar 31, 2021 22:49
[2021-03-31 22:54] LABS: CHOLESTEROL LEVEL 152 MG/DL (<200); CHOLESTEROL RISK RATIO 3.166 (<5); HDL CHOLESTEROL 48 MG/DL (>40); LDL CHOLESTEROL 71 MG/DL (<100); NON-HDL-C 104 MG/DL; TRIGLYCERIDES LEVEL 167 MG/DL (<150)
[2021-04-01] VITALS (12 sets, daily range): BP systolic 115–198; BP diastolic 58–95
[2021-04-01 05:27] LABS: HEMATOCRIT 35.1 % (42.0-52.0); HEMOGLOBIN 11.8 g/dl (13.5-17.5); MEAN CORPUSCULAR HEMOGLOBIN 31.2 pg (27.0-33.0); MEAN CORPUSCULAR HGB CONC 33.6 g/dl (32.0-36.5); MEAN CORPUSCULAR VOLUME 92.9 fl (80.0-96.0); PLATELET COUNT, AUTOMATED 224 10^3/uL (150-450); RED BLOOD COUNT 3.78 10^6/uL (4.30-6.10); WHITE BLOOD COUNT 5.9 10^3/uL (4.0-10.0)
[2021-04-01 05:57] LABS: ALBUMIN 3.4 GM/DL (3.2-5.2); ALT/SGPT 21 U/L (12-78); BILIRUBIN,TOTAL 0.4 MG/DL (0.2-1.0); BLOOD UREA NITROGEN 23 MG/DL (7-18); CALCIUM LEVEL 8.5 MG/DL (8.8-10.2); CARBON DIOXIDE LEVEL 28 MEQ/L (21-32); CHLORIDE LEVEL 110 MEQ/L (98-107); CREATININE FOR GFR 1.15 MG/DL (0.70-1.30); GLOMERULAR FILTRATION RATE > 60.0 (>42); GLUCOSE, FASTING 113 MG/DL (70-100); MAGNESIUM LEVEL 1.6 MG/DL (1.8-2.4); POTASSIUM SERUM 3.3 MEQ/L (3.5-5.1); SODIUM LEVEL 144 MEQ/L (136-145); TOTAL PROTEIN 6.8 GM/DL (6.4-8.2)
[2021-04-01] MEDS: HumaLOG INSULIN (NovoLOG) PER UNIT SC SCH ×4 (07:30→21:00)
[2021-04-01] MEDS ORDERED: POTASSIUM CHLORIDE 10 MEQ SR TABLET PO ONE (08:15)
[2021-04-01] MEDS: ATORVASTATIN 20 MG TAB PO SCH (08:27)
[2021-04-01] MEDS: ASPIRIN 81 MG CHEW TABLET PO SCH (08:27)
[2021-04-01] MEDS: ENOXAPARIN 40MG/0.4ML SYRINGE (J1650 PER 10MG) SC SCH (08:28)
[2021-04-01] MEDS: MAG SULF 1GM/100ML (MAG RUN) 1 GM in IV 1 EA IV SCH ×2 (08:29→10:13)
[2021-04-01] MEDS ORDERED: amLODIPine 5 MG TAB PO SCH (11:15)
--- NOTE | 2021-04-01 11:17 | ECGEPIP ---
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
[2021-04-01] MEDS ORDERED: MIDAZOLAM INJ 2MG/2ML VIAL (J2250 PER 1MG) As Ordered ONE (12:36)
[2021-04-01] MEDS ORDERED: ONDANSETRON 4MG/2ML VIAL IV PRN (13:50)
[2021-04-01] MEDS ORDERED: LR 1,000 ML IV SCH (13:50)
--- NOTE | 2021-04-01 14:25 | IPNPDOC ---
Text Note Date of Service The patient was seen on 04/01/21. NOTE Subjective: Patient is 70yo M, today at bedside is feeling well and reports resolution of numbness and weakness in L lower extremity and L labial region. Associated gait difficulty and facial droop have also completely resolved. Patient has full ROM in L lower extremity and ability to ambulate without difficulty. He reports no new complaints. Objective: GEN: Pleasant, A+Ox3 HEENT: Atraumatic, normocephalic, CN III-XII intact b/l, EOMI, PERRLA, moist oral membranes, neck supple, no JVD NEURO: No focal deficits, sensation intact b/l. 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 Normal temp. RESP: CTA b/l, no wheezes, rales, rhonchi CVS: RRR, no murmurs, rubs, gallops GI: normoactive BS, ND, nontender, soft. EXT: no nail changes, cyanosis. Assessment Patient is 70yo M w past medical Hx of DMT2, HTN, HLD, smoker, evidence of CVA/ hypertension-induced lacunar infarct on past MRI, which did not result in any symptoms. On admission to ER, BP was elevated at 220/110, further imaging in the ED showed chronic microvascular disease and prior right thalamic infarct. Patient was admitted under hospitalist service yesterday for further evaluation of TIA and management. Plan: Transient ischemic attack: -Patient reports to have the symptoms of intermittent numbness and weakness in his left leg and numbing sensation in the left lower face. -We will get an MRI and MRA brain and carotid ultrasound. Patient has claustrophobia and is getting anesthesia for getting an MRI done. -Patient reports taking his medications aspirin 81 mg, statin regularly, but reports he was discontinued on his blood pressure medication. -On presentation he has an elevated blood pressure. -Patient was started on aspirin 324 mg, and continued on statin 40 mg, started on amlodipine for blood pressure. Hypertensive urgency: -Patient presented to the ED with them SBP in in 200s and was brought down with hydralazine. -We will start patient on amlodipine 10 mg twice daily. NIDDM: -Patient generally takes Metformin at home. -Given that he is in the hospital we was start him on insulin sliding scale. -Patient refused to take insulin as he does not want to start taking insulin. Patient was educated that he would not be started on insulin on discharge but he refused to take the insulin. -Patient's blood sugar levels are well within the normal limits for now. Dyslipidemia: -We will continue atorvastatin 40 mg for now. DVT prophylaxis: -Lovenox 40 mg subcutaneous. Disposition: -Given his resolution of symptoms based on the labs and imaging possible discharge tomorrow. VS,Fishbone, I+O VS, Fishbone, I+O Laboratory Tests 03/31/21 20:46 04/01/21 05:04 Vital Signs Date Time Temp Pulse Resp B/P (MAP) Pulse Ox O2 Delivery O2 Flow Rate FiO2 04/01/21 08:25 97.4 63 17 155/77 94 Room Air I&O- Last 24 Hours up to 6 AM 04/01/21 05:59 Intake Total 360 ml Output Total 0 ml Balance 360 ml GME ATTESTATION GME ATTESTATION My faculty preceptor for this patient encounter was physically present during the encounter and was fully available. All aspects of the patient interview, examination, medical decision making process, and medical care plan development were reviewed and approved by the faculty preceptor. The faculty preceptor is aware and concurs with the plan as stated in the body of this note and will attest to such by his/her cosignature. ATTENDING NOTE I, Demarco Harris, have independently examined this patient and performed my own physical exam, as well as reviewed the documentation and edited where necessary. I have discussed in detail with the resident / student the findings and plan of treatment as documented by the resident / student and edited their note. I agree with their findings and treatment plan and have edited their documentation. I will continue to follow the patient during this hospital stay. YASMEEN RIOS OMS-3 Apr 01, 2021 12:24 Trevor Butler MD Apr 01, 2021 20:14 DEMARCO HARRIS MD Apr 02, 2021 21:14
--- NOTE | 2021-04-01 15:26 | REPVR ---
PROCEDURE INFORMATION: Exam: MRA Head Without Contrast; Arteriography Exam date and time: 04/01/2021 2:01 PM Age: 70 years old Clinical indication: Weakness; Additional info: Stroke TECHNIQUE: Imaging protocol: Magnetic resonance angiography head without contrast. Exam focused on the arteries. COMPARISON: CT Head without contrast 03/31/2021 8:31 PM FINDINGS: ANTERIOR CIRCULATION: Right internal carotid artery: Intracranial segment is patent with no significant stenosis. No aneurysm. Right middle cerebral artery: No occlusion or significant stenosis. No aneurysm. Right anterior cerebral artery: No occlusion or significant stenosis. No aneurysm. Left internal carotid artery: Intracranial segment is patent with no significant stenosis. No aneurysm. Left middle cerebral artery: No occlusion or significant stenosis. No aneurysm. Left anterior cerebral artery: No occlusion or significant stenosis. No aneurysm. POSTERIOR CIRCULATION: Right vertebral artery: The right vertebral artery is dominant. Patent. 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 Patent. Basilar artery: No occlusion or significant stenosis. No aneurysm. Right posterior cerebral artery: No occlusion or significant stenosis. No aneurysm. Left posterior cerebral artery: origin of the left posterior cerebral artery. Suggestion of a short segment high-grade stenosis at the junction of the left P1 and P2 segments, image 103 series 401. IMPRESSION: No proximal intracranial arterial occlusion. Electronically signed by: Nancy Presley On 04/01/2021 15:25:54 PM
--- NOTE | 2021-04-01 15:30 | REPVR ---
PROCEDURE INFORMATION: Exam: US Duplex Bilateral Extracranial Arteries Exam date and time: 04/01/2021 1:52 AM Age: 70 years old Clinical indication: Speech disturbance and weakness, extremity; Left; Slurred speech; Additional info: Stroke TECHNIQUE: Imaging protocol: Real-time Duplex ultrasound scan of the bilateral carotid and vertebral arteries combining tim scale, color Doppler and spectral waveform analysis. Bilateral exam. COMPARISON: CT Head without contrast 03/31/2021 8:31 PM FINDINGS: Right common carotid artery: Unremarkable. No occlusion or stenosis. Waveforms are normal. Right internal carotid artery: There is visible plaque. No occlusion or stenosis. Waveforms are normal. Right ICA/CCA ratio: 1.2. Right external carotid artery: No stenosis in the origin. Right vertebral artery: Unremarkable. Antegrade flow. Left common carotid artery: Unremarkable. No occlusion or stenosis. Waveforms are normal. Left internal carotid artery: There is visible plaque. No occlusion or stenosis. Waveforms are normal. Left ICA/CCA ratio: 0.8. Left external carotid artery: No stenosis in the origin. Left vertebral artery: Unremarkable. Antegrade flow. IMPRESSION: 1. Less than 50% right ICA stenosis. 2. Less than 50% left ICA stenosis. 3. The vertebral arteries are patent and antegrade. REFERENCES: SRU CRITERIA. The degree of internal carotid artery stenosis is based on criteria defined by the Society of Radiologists in Ultrasound (SRU). Normal is no stenosis. Mild is less than 50% stenosis. Moderate is 50-69% stenosis. Severe is greater than 69% stenosis to near occlusion. Near occlusion is a markedly narrowed lumen. Total occlusion is no detectable patent lumen. Electronically signed by: Nancy Persley On 04/01/2021 15:29:53 PM
--- NOTE | 2021-04-01 15:35 | REPVR ---
PROCEDURE INFORMATION: Exam: MR Head Without Contrast Exam date and time: 04/01/2021 2:01 PM Age: 70 years old Clinical indication: Weakness, extremity and other: Left lip droop; Additional info: Stroke TECHNIQUE: Imaging protocol: MR of the head without contrast. COMPARISON: CT Head without contrast 03/31/2021 8:31 PM FINDINGS: Brain: No acute infarct identified on the diffusion-weighted imaging. No parenchymal hemorrhage. The brain demonstrates generalized volume loss. Focal, chronic lacunar infarcts in the right thalamus and right internal capsule. Focal, chronic right cerebellar infarct. Mild patchy increased signal intensity in the deep white matter on the T2 weighted imaging most likely represents mild chronic small vessel ischemic change. Cerebral ventricles: The ventricles are mildly enlarged in keeping with volume loss. Bones/joints: Unremarkable. Paranasal sinuses: Mild ethmoid sinus mucosal thickening. Mastoid air cells: Normal as visualized. No mastoid effusion. Orbital cavity: Thinning of the lenses of the globes consistent with prior lens surgery. Soft tissues: Unremarkable. IMPRESSION: No evidence of acute infarct. Electronically signed by: Nancy Presley On 04/01/2021 15:34:50 PM
[2021-04-01] MEDS ORDERED: amLODIPine 5 MG TAB PO ONE (16:15)
[2021-04-01] MEDS ORDERED: propofoL 200 MG/20 ML VIAL ONE (16:17)
[2021-04-02] VITALS (10 sets, daily range): BP systolic 147–191; BP diastolic 53–94
[2021-04-02 07:21] LABS: BASO % 0.6 % (0.0-1.0); EOS # 0.1 10^3/uL (0.0-0.5); EOS % 1.2 % (0.0-3.0); HEMATOCRIT 36.2 % (42.0-52.0); HEMOGLOBIN 12.4 g/dl (13.5-17.5); LYMPH # 1.9 10^3/uL (1.5-5.0); LYMPH % 27.1 % (24.0-44.0); MEAN CORPUSCULAR HGB CONC 34.3 g/dl (32.0-36.5); MEAN CORPUSCULAR VOLUME 93.3 fl (80.0-96.0); MONO # 0.7 10^3/uL (0.0-0.8); NEUTROPHILS # 4.2 10^3/uL (1.5-8.5); NEUTROPHILS % 60.8 % (36.0-66.0); PLATELET COUNT, AUTOMATED 228 10^3/uL (150-450); RED BLOOD COUNT 3.88 10^6/uL (4.30-6.10); WHITE BLOOD COUNT 6.9 10^3/uL (4.0-10.0)
[2021-04-02] MEDS: HumaLOG INSULIN (NovoLOG) PER UNIT SC SCH ×2 (07:30→11:46)
[2021-04-02] MEDS: ATORVASTATIN 20 MG TAB PO SCH (08:09)
[2021-04-02] MEDS: ENOXAPARIN 40MG/0.4ML SYRINGE (J1650 PER 10MG) SC SCH (08:10)
[2021-04-02] MEDS: ASPIRIN 81 MG CHEW TABLET PO SCH (08:10)
[2021-04-02 08:45] LABS: BLOOD UREA NITROGEN 23 MG/DL (7-18); CALCIUM LEVEL 8.3 MG/DL (8.8-10.2); CARBON DIOXIDE LEVEL 28 MEQ/L (21-32); CHLORIDE LEVEL 110 MEQ/L (98-107); CREATININE FOR GFR 1.13 MG/DL (0.70-1.30); GLOMERULAR FILTRATION RATE > 60.0 (>42); GLUCOSE, FASTING 105 MG/DL (70-100); MAGNESIUM LEVEL 2.1 MG/DL (1.8-2.4); POTASSIUM SERUM 3.7 MEQ/L (3.5-5.1); SODIUM LEVEL 142 MEQ/L (136-145)
[2021-04-02] MEDS ORDERED: ASPI81CH8 PO (10:20)
[2021-04-02] MEDS ORDERED: AMLO1TAB25 PO (10:20)
[2021-04-02] MEDS ORDERED: LISI10TA22 PO (10:27)
[2021-04-02] MEDS ORDERED: SLF 3 ML SYR IV PRN (10:35)
--- NOTE | 2021-04-02 10:55 | DS.PDOC ---
Discharge Summary General Date of Admission Mar 31, 2021 at 20:12 Date of Discharge Apr 02, 2021 Discharge Summary PROCEDURES PERFORMED DURING STAY: [None]. ADMITTING DIAGNOSES/ DISCHARGE DIAGNOSES: 1.Transient Ischemic Attack 2.Hypertensive urgency 3.NIDDM 4.Dyslipidemia 5.Active smoker 6.Past Hx CVA- R thalamic infarct COMPLICATIONS/CHIEF COMPLAINT: L leg weakness and numbness w assoc difficulty walking, L labial numbness HISTORY OF PRESENT ILLNESS: Patient is 70yo M w past medical Hx of DMT2, HTN, HLD, smoker, evidence of CVA/ hypertension-induced lacunar infarct on past MRI, which did not result in any symptoms. On admission to ER, BP was elevated at 220/110, further imaging in the ED showed chronic microvascular disease and prior right thalamic infarct. Patient was admitted under hospitalist service for further evaluation of TIA and management. Today at bedside is feeling well, denies pain, and reports resolution of numbness and weakness in L lower extremity and L labial region. Associated gait difficulty and facial droop have also completely resolved. Patient has full ROM in L lower extremity and ability to ambulate without difficulty. Denies palpitations, SOB, N/V. He reports no new complaints and is in agreement of discharge plan. HOSPITAL COURSE: -Patient blood pressure was elevated on admission and has improved throughout hospital course -Upon admission managed w antihypertensives w eventual resolution of sx -Patient reports resolution of paresthesias and weakness, which had only occured transiently -Patients sx have improved and he is feeling well -Imaging via MRI / MRI were negative for any acute pathology -No evidence of A. fib on EKG done in ER, EKG revealed normal sinus rhythm, L axis dev, denies FH of heart disease -Patient's initial dose of ASA of 81 was increased to 325 after discussion with Neurology -Patient has been instructed to follow up with PCP and Neurology within 7 days Patient has been counselled on smoking cessation. DISCHARGE MEDICATIONS: Please see below. ALLERGIES: Please see below. PHYSICAL EXAMINATION ON DISCHARGE: VITAL SIGNS: Please see below. GENERAL: Pleasant, A+Ox3. Patient sitting up in bed and appears to be c omfortable, speaking in full sentences. HEENT: Atraumatic, normocephalic, CN III-XII intact b/l, EOMI, PERRLA, moist oral membranes, neck supple, no JVD CARDIOVASCULAR EXAMINATION: RRR, no murmurs, rubs, gallops RESPIRATORY EXAMINATION: CTA b/l, no wheezes, rales, rhonchi ABDOMINAL EXAMINATION: normoactive BS, ND, nontender, soft EXTREMITIES: no nail changes, cyanosis, lower extremities do not reveal any edema SKIN: no rash. normal turgor. normal temp. NEUROLOGICAL EXAMINATION: No focal deficits, sensation intact b/l. LABORATORY DATA: Please see below. IMAGING: - MR Head Without Contrast: No acute infarct identified on the diffusion- weighted imaging. No parenchymal hemorrhage. The brain demonstrates generalized volume loss. Focal, chronic lacunar infarcts in the right thalamus and right internal capsule. Focal, chronic right cerebellar infarct. Mild patchy increased signal intensity in the deep white matter on the T2 weighted imaging most likely represents mild chronic small vessel ischemic change. -MRA Head Without Contrast; Arteriography: No proximal intracranial arterial occlusion -US Duplex Bilateral Extracranial Arteries: 1. Less than 50% right ICA stenosis. 2. Less than 50% left ICA stenosis. 3. The vertebral arteries are patent and antegrade. CT Head without contrast : There is chronic microvascular disease with an old right thalamic lacunar infarct. 2. No acute intracranial lesion or injury XR Chest: No acute findings. ACTIVITY: [As tolerated] DISCHARGE PLAN: - Follow-up with primary care provider with next 7 days. -Patient was educated about the compliance of the medication - Daily Aspirin increased to 324mg d/t TIA occurrence while on low dose - Start Pt on antihypertensives, amlodipine 10 mg in the morning and lisinopril 10 mg at night. -Please do necessary blood work needed following the start of lisinopril during the PCP visit. - F/U w/ neurology in 7 days - Return to the ER if you experience any problems We will start patient on amlodipine 10 mg in morning, Lisinopril 10mg at night Maintain on full dose Aspirin 324mg once daily DISPOSITION: . Home DISCHARGE CONDITION: [Stable]. TIME SPENT ON DISCHARGE: 60 minutes. Vital Signs/I&Os Vital Signs Date Time Temp Pulse Resp B/P (MAP) Pulse Ox O2 Delivery O2 Flow Rate FiO2 04/02/21 08:16 172/94 (120) 04/02/21 08:09 66 04/02/21 08:04 99.2 20 95 Room Air 04/01/21 13:44 3 I&O- Last 24 Hours up to 6 AM 7/1/21 06:00 Intake Total 750 ml Output Total 975 ml Balance -225 ml Laboratory Data Labs 24H Laboratory Tests 2 04/01/21 11:20: Lab Scanned Report Miscellaneous Lab 04/01/21 12:11: Bedside Glucose (Misc Panel) 111H 04/01/21 17:05: Bedside Glucose (Misc Panel) 84 04/01/21 20:53: Bedside Glucose (Misc Panel) 151H 04/02/21 07:05: Immature Granulocyte % (Auto) 0.3, Neutrophils (%) (Auto) 60.8, Lymphocytes (%) (Auto) 27.1, Monocytes (%) (Auto) 10.0H, Eosinophils (%) (Auto) 1.2, Basophils (%) (Auto) 0.6, Neutrophils # (Auto) 4.2, Lymphocytes # (Auto) 1.9, Monocytes # (Auto) 0.7, Eosinophils # (Auto) 0.1, Basophils # (Auto) 0.0, Nucleated Red Blood Cells % (auto) 0.0, Anion Gap 4L, Glomerular Filtration Rate > 60.0, Calc ium Level 8.3L, Magnesium Level 2.1 04/02/21 07:48: Bedside Glucose (Misc Panel) 133H CBC/BMP Laboratory Tests 04/02/21 07:05 FSBS Laboratory Tests Test 04/01/21 12:11 04/01/21 17:05 04/01/21 20:53 04/02/21 07:48 Range/Units Bedside Glucose (Misc Panel) 111 84 151 133 83-110 MG/DL Discharge Medications Scheduled Amlodipine Besylate (Amlodipine Besylate) 10 Mg Tablet, 10 MG PO DAILY Aspirin (Children's Aspirin) 81 Mg Tab.chew, 324 MG PO DAILY Lisinopril (Lisinopril) 10 Mg Tablet, 10 MG PO DAILY Metformin HCl (Metformin HCl ER) 500 Mg Tab, 500 MG PO BID, (Reported) Omeprazole (Omeprazole) 40 Mg Cap, 40 MG PO DAILY, (Reported) Simvastatin (Simvastatin) 20 Mg Tab, 20 MG PO DAILY, (Reported) Vit A/Vit C/Vit E/Zinc/Copper (Preservision Areds Tablet) 1 Each Tablet, 1 TAB PO QHS, (Reported) Allergies Coded Allergies: No Known Allergies (Verified , 11/22/18) GME ATTESTATION GME ATTESTATION My faculty preceptor for this patient encounter was physically present during the encounter and was fully available. All aspects of the patient interview, examination, medical decision making process, and medical care plan development were reviewed and approved by the faculty preceptor. The faculty preceptor is aware and concurs with the plan as stated in the body of this note and will attest to such by his/her cosignature. ATTENDING NOTE I, Demarco Harris, have independently examined this patient and performed my own physical exam, as well as reviewed the documentation and edited where necessary. I have discussed in detail with the resident / student the findings and plan of treatment as documented by the resident / student and edited their note. I agree with their findings and treatment plan and have edited their documentatio n. I will continue to follow the patient during this hospital stay. Time spent on discharge 35 minutes YASMEEN RIOS OMS-3 Apr 02, 2021 10:17 Trevor Butler MD Apr 02, 2021 19:32 DEMARCO HARRIS MD Apr 02, 2021 21:19
[2021-04-02] MEDS ORDERED: SLF 3 ML SYR IV SCH (14:00)
--- NOTE | 2021-04-03 08:52 | ECHO ---
ECHOCARDIOGRAM DATE OF PROCEDURE: 04/01/2021 Age: 70 Gender: Male Height: 74 kg Weight: 173 cm REFERRING PHYSICIAN: Akash Austin DO PATIENT LOCATION: Room 3219. INDICATION: 2D MEASUREMENTS: IVS 1.6 cm LV 4.2 cm LVPW 1.2 cm LA 4.9 cm Aorta 3.8 cm IVC 1.2 cm DOPPLER MEASUREMENT Peak velocity across the aortic valve 1.2 m/s Peak velocity across the LVOT 0.88 m/s Mitral E 0.47 Mitral A 0.81 with a ratio of 0.6 Maximum tricuspid valve velocity 2.7 m/s 2D COMMENTS: 1. Normal left ventricular size with moderately increased left ventricular wall thickness. Left ventricular systolic function is normal, estimated at 60% to 65%. 2. Mildly enlarged left atrium. Normal right atrium and right ventricle. 3. The atrial septum appeared to be normal without evidence of defect or shunt. 4. Mildly dilated aortic root at 3.8 cm. 5. No pericardial effusion seen. 6. Mildly calcified aortic valve with normal leaflet excursion. Mildly calcified mitral annulus with normal anterior mitral valve leaflet motion. Normal tricuspid valve and pulmonic valve. The proximal pulmonary artery branches were not well visualized. 7. The inferior vena cava was normal in size, central venous pressure is most likely normal. DOPPLER: Detects trace to mild mitral regurgitation, mild tricuspid regurgitation, and trace pulmonic regurgitation. The calculated pulmonary artery systolic pressure varies between 30 to 40 mmHg. Abnormal relaxation pattern was noted across the mitral valve leaflets, as well as the mitral valve annulus consistent with features of grade 1 left ventricular diastolic dysfunction. IMPRESSION: 1. Normal global left ventricular systolic function with probably moderate concentric left ventricular hypertrophy. There are some features of grade 1 left ventricular diastolic dysfunction manifested by abnormal relaxation. 2. Aortic valve sclerosis without stenosis or aortic regurgitation. 3. Mildly enlarged left atrium with trace to mild mitral regurgitation and mitral annular calcification. 4. Mild tricuspid regurgitation with mild pulmonary hypertension. 5. Mildly dilated aortic root at 3.8 cm.
== END 2021-04-02 13:31 | disposition home or self-care (01) | DRG 69 ==
LOC: M ED 20:11 → OBSVTOIN 20:12 → M ED INP 20:12 → ENRESERV 23:33 → M PCU 04-01 00:05
PROVIDERS: ADMIT Internal Medicine; ATTEND Internal Medicine
DX: G45.9 Transient cerebral ischemic attack, unspecified (principal); I10 Essential (primary) hypertension; E11.9 Type 2 diabetes mellitus without complications; I16.0 Hypertensive urgency; F17.200 Nicotine dependence, unspecified, uncomplicated; E78.5 Hyperlipidemia, unspecified; Z79.82 Long term (current) use of aspirin; Z79.899 Other long term (current) drug therapy; K21.9 Gastro-esophageal reflux disease without esophagitis

== ENCOUNTER → 2021-05-26 | Outpatient (CLI) | payer MEDICARE ==
[~2021-05-26] MED LIST changes: +AMLO1TAB25 PO; +ASPI-161 PO; +ASPI81CH8 PO; +LISI10TA22 PO; +OCUVTAB4 PO
--- NOTE | 2021-05-26 09:08 | REP ---
INDICATION: BLOOD PRESSURE PROBLEM COMPARISON: None TECHNIQUE: Real time tim scale ultrasound examination using curved array transducer followed by color Doppler evaluation of the renal vasculature. FINDINGS: The kidneys demonstrate mild increased echotexture and increased central sinus fat suggesting chronic age-related renal disease. No hydronephrosis, nephrolithiasis. Right kidney measures 12.8 x 5.5 x 6.4 cm. Left kidney measures 14.7 x 5.2 x 6.2 cm and includes 3 cm lower pole cyst and adjacent subcentimeter hypodensity likely representing smaller cyst. Color Doppler evaluation. Peak aortic velocity: 70.6 centimeters/second RIGHT KIDNEY Renal arterial velocity: 90.4 centimeters/second Renal-aortic ratio: 1.3 Intrarenal resistive indices: 0.78 Intrarenal acceleration times: 0.06 LEFT KIDNEY Renal arterial velocity: 74.4 centimeters/second Renal-aortic ratio: 1.1 Intrarenal resistive indices: 0.7-0.8 Intrarenal acceleration times: 0.05-0.09 IMPRESSION: 1. Kidneys demonstrate presumed chronic age-related changes and left renal cyst. 2. No definite evidence for renal arterial stenosis. Intrarenal vascular findings likely represent chronic small vessel disease. <Electronically signed by Roverto Heaton > 05/26/21 [id number]
== END ==
LOC: M RAD 07:42
PROVIDERS: ATTEND Family Medicine
DX: I95.89 Other hypotension (principal); N28.1 Cyst of kidney, acquired

== ENCOUNTER → 2021-08-18 | Outpatient (REF) | payer MEDICARE ==
[2021-08-18 17:10] LABS: PERCENT SATURATION 25.3 % (19.7-50.0)
[2021-08-18 17:20] LABS: FOLATE 9.4 NG/ML
== END ==
LOC: M LAB REF 16:24
PROVIDERS: ATTEND Family Medicine
DX: D64.9 Anemia, unspecified (principal); R53.83 Other fatigue

== ENCOUNTER → 2021-11-10 | Outpatient (REF) | payer MEDICARE | LOC: M LAB REF 16:31 | PROVIDERS: ATTEND Family Medicine | DX: D64.9 Anemia, unspecified (principal) ==

== ENCOUNTER 2021-12-11 15:02 | Emergency (ER) | payer MEDICARE ==
[~2021-12-11] VITALS: Ht 172.7 cm; Wt 71.8 kg
[2021-12-11 15:03] VITALS: BP 147/72
[2021-12-11] MEDS ORDERED: PEPC1TAB5 PO (15:09)
[2021-12-11] MEDS ORDERED: MIDO2.5T PO (15:09)
[2021-12-11 15:48] LABS: BASO % 0.3 % (0.0-1.0); EOS # 0.1 10^3/uL (0.0-0.5); EOS % 1.1 % (0.0-3.0); HEMATOCRIT 32.9 % (42.0-52.0); HEMOGLOBIN 11.2 g/dl (13.5-17.5); LYMPH # 2.3 10^3/uL (1.5-5.0); LYMPH % 22.9 % (24.0-44.0); MEAN CORPUSCULAR HEMOGLOBIN 31.6 pg (27.0-33.0); MEAN CORPUSCULAR VOLUME 92.9 fl (80.0-96.0); MONO # 0.7 10^3/uL (0.0-0.8); MONO % 6.9 % (2.0-8.0); NEUTROPHILS # 6.8 10^3/uL (1.5-8.5); NEUTROPHILS % 68.5 % (36.0-66.0); PLATELET COUNT, AUTOMATED 251 10^3/uL (150-450); RED BLOOD COUNT 3.54 10^6/uL (4.30-6.10); WHITE BLOOD COUNT 9.9 10^3/uL (4.0-10.0)
[2021-12-11 16:01] LABS: INR 1.03; PROTHROMBIN TIME 13.9 SECONDS (12.7-14.5)
[2021-12-11 16:08] LABS: ERYTHROCYTE SEDIMENTATION RATE 36 mm/hr (0-20)
[2021-12-11 16:18] LABS: C REACTIVE PROTEIN QUANTITATIV 1.19 MG/DL (0.00-0.30); CALCIUM LEVEL 8.9 MG/DL (8.8-10.2); CREATININE FOR GFR 1.6 MG/DL (0.70-1.30); GLOMERULAR FILTRATION RATE 45.3 (>42); POTASSIUM SERUM 4.5 MEQ/L (3.5-5.1)
[2021-12-11] MEDS ORDERED: LORazepam 2 MG/ML VIAL IV STA (16:18)
== END 2021-12-11 18:45 | disposition left against medical advice (07) ==
LOC: M ED 15:02
DX: H53.129 Transient visual loss, unspecified eye (principal); R94.31 Abnormal electrocardiogram [ECG] [EKG]; E11.9 Type 2 diabetes mellitus without complications; I10 Essential (primary) hypertension; K21.9 Gastro-esophageal reflux disease without esophagitis; E78.5 Hyperlipidemia, unspecified; F17.200 Nicotine dependence, unspecified, uncomplicated; Z79.4 Long term (current) use of insulin; Z79.899 Other long term (current) drug therapy; Z53.21 Procedure and treatment not carried out due to patient leaving prior to being seen by health care provider; R51.9 Headache, unspecified

== ENCOUNTER 2021-12-13 15:21 | Inpatient (IN) | payer MEDICARE ==
[~2021-12-13] VITALS: Ht 172.7 cm; Wt 72.5 kg
[2021-12-13] MEDS: CLOPIDOGREL 75 MG TAB PO SCH (09:00)
[~2021-12-13 15:21] MED LIST changes: +MIDO2.5T PO; +PEPC1TAB5 PO
[2021-12-13 15:53] LABS: BASO % 0.2 % (0.0-1.0); EOS % 0.3 % (0.0-3.0); HEMATOCRIT 33.5 % (42.0-52.0); HEMOGLOBIN 11.6 g/dl (13.5-17.5); LYMPH # 1.4 10^3/uL (1.5-5.0); LYMPH % 11.5 % (24.0-44.0); MEAN CORPUSCULAR HEMOGLOBIN 31.7 pg (27.0-33.0); MEAN CORPUSCULAR HGB CONC 34.6 g/dl (32.0-36.5); MEAN CORPUSCULAR VOLUME 91.5 fl (80.0-96.0); MONO # 0.8 10^3/uL (0.0-0.8); MONO % 6.3 % (2.0-8.0); NEUTROPHILS # 10.1 10^3/uL (1.5-8.5); NEUTROPHILS % 81.3 % (36.0-66.0); PLATELET COUNT, AUTOMATED 265 10^3/uL (150-450); RED BLOOD COUNT 3.66 10^6/uL (4.30-6.10); WHITE BLOOD COUNT 12.5 10^3/uL (4.0-10.0)
[2021-12-13 16:04] LABS: INR 1.06; PROTHROMBIN TIME 14.2 SECONDS (12.7-14.5)
[2021-12-13 16:05] LABS: PARTIAL THROMBOPLASTIN TIME 29.6 SECONDS (25.9-37.0)
[2021-12-13] MEDS ORDERED: hydrALAZINE 20MG/ML 1ML VIAL (J0360 PER 20MG) IV STA (16:25)
[2021-12-13] MEDS ORDERED: hydrALAZINE 20MG/ML 1ML VIAL (J0360 PER 20MG) IV PRN (17:00)
[2021-12-13] MEDS ORDERED: ASPI325T49 PO (17:00)
[2021-12-13] MEDS ORDERED: HOME MED LIST COMPLETE! XX SCH (17:05)
[2021-12-13] MEDS ORDERED: GLUCAGON INJ 1MG VIAL SC PRN (17:20)
[2021-12-13] MEDS: THIAMINE 200MG 2ML VIAL IV SCH (17:20)
[2021-12-13] MEDS ORDERED: GLUCOSE 4GM CHEW TABLET PO PRN (17:20)
[2021-12-13] MEDS ORDERED: DEXTROSE 50% 50 ML SYRINGE IV PRN (17:20)
[2021-12-13 17:28] LABS: RSV AMPLIFICATION NEGATIVE (NEGATIVE)
[2021-12-13] MEDS: HumaLOG INSULIN (NovoLOG) PER UNIT SC SCH (17:30)
[2021-12-13 21:00] VITALS: BP 166/77
[2021-12-13] MEDS ORDERED: HumaLOG INSULIN (NovoLOG) PER UNIT SC SCH (21:00)
[2021-12-13] MEDS: FAMOTIDINE 20 MG TAB PO SCH (21:18)
[2021-12-14] VITALS: BP 158/76
[2021-12-14] MEDS: SIMVASTATIN 20 MG TAB PO SCH ×2 (00:18→08:32)
[2021-12-14 04:00] VITALS: BP 176/79
[2021-12-14 06:01] LABS: HEMATOCRIT 31.6 % (42.0-52.0); HEMOGLOBIN 10.8 g/dl (13.5-17.5); MEAN CORPUSCULAR HEMOGLOBIN 31.4 pg (27.0-33.0); MEAN CORPUSCULAR HGB CONC 34.2 g/dl (32.0-36.5); MEAN CORPUSCULAR VOLUME 91.9 fl (80.0-96.0); PLATELET COUNT, AUTOMATED 243 10^3/uL (150-450); RED BLOOD COUNT 3.44 10^6/uL (4.30-6.10); WHITE BLOOD COUNT 8.2 10^3/uL (4.0-10.0)
[2021-12-14 06:15] LABS: HEMOGLOBIN A1c 5.9 %
[2021-12-14 06:33] LABS: CALCIUM LEVEL 8.8 MG/DL (8.8-10.2); CHOLESTEROL RISK RATIO 3.021 (<5); CREATININE FOR GFR 1.38 MG/DL (0.70-1.30); GLOMERULAR FILTRATION RATE 53.8 (>42); POTASSIUM SERUM 3.9 MEQ/L (3.5-5.1)
[2021-12-14] MEDS: HumaLOG INSULIN (NovoLOG) PER UNIT SC SCH ×3 (07:30→16:58)
[2021-12-14 08:00] VITALS: BP 190/88
[2021-12-14] MEDS: THIAMINE 200MG 2ML VIAL IV SCH (08:31)
[2021-12-14] MEDS: FAMOTIDINE 20 MG TAB PO SCH ×2 (08:32→19:58)
[2021-12-14] MEDS: OCUVITE 1 TAB PO SCH (08:32)
[2021-12-14] MEDS: CLOPIDOGREL 75 MG TAB PO SCH (08:32)
[2021-12-14] MEDS ORDERED: ASPIRIN ENTERIC 325 MG TAB PO SCH (09:00)
[2021-12-14] MEDS ORDERED: SIMVASTATIN 20 MG TAB PO SCH (09:00)
[2021-12-14] MEDS ORDERED: hydrALAZINE 20MG/ML 1ML VIAL (J0360 PER 20MG) IV ONE (10:00)
[2021-12-14 12:00] VITALS: BP 158/82
[2021-12-14 16:00] VITALS: BP 176/91
[2021-12-14] MEDS: metFORMIN XR 500MG TAB *GLUCOPHAGE XR PO SCH (19:58)
[2021-12-14 20:00] VITALS: BP 126/66
[2021-12-15] VITALS (11 sets, daily range): BP systolic 90–210; BP diastolic 55–111
[2021-12-15 05:57] LABS: HEMATOCRIT 31.7 % (42.0-52.0); MEAN CORPUSCULAR HEMOGLOBIN 31.7 pg (27.0-33.0); MEAN CORPUSCULAR HGB CONC 34.7 g/dl (32.0-36.5); MEAN CORPUSCULAR VOLUME 91.4 fl (80.0-96.0); PLATELET COUNT, AUTOMATED 250 10^3/uL (150-450); RED BLOOD COUNT 3.47 10^6/uL (4.30-6.10); WHITE BLOOD COUNT 6.9 10^3/uL (4.0-10.0)
[2021-12-15 06:25] LABS: CREATININE FOR GFR 1.71 MG/DL (0.70-1.30); POTASSIUM SERUM 3.8 MEQ/L (3.5-5.1)
[2021-12-15] MEDS ORDERED: CLOP75TA2 PO (07:30)
[2021-12-15] MEDS ORDERED: ASPI81CH8 PO (07:30)
[2021-12-15] MEDS ORDERED: amLODIPine 5 MG TAB PO ONE ×2 (07:55→22:25)
[2021-12-15] MEDS: CLOPIDOGREL 75 MG TAB PO SCH (08:37)
[2021-12-15] MEDS: metFORMIN XR 500MG TAB *GLUCOPHAGE XR PO SCH ×2 (08:37→17:57)
[2021-12-15] MEDS: ASPIRIN 81 MG CHEW TABLET PO SCH (08:37)
[2021-12-15] MEDS: OCUVITE 1 TAB PO SCH (08:37)
[2021-12-15] MEDS: THIAMINE 200MG 2ML VIAL IV SCH (08:37)
[2021-12-15] MEDS: FAMOTIDINE 20 MG TAB PO SCH ×2 (08:37→20:22)
[2021-12-15] MEDS: SIMVASTATIN 20 MG TAB PO SCH (08:38)
[2021-12-15 09:14] LABS: CORTISOL AM 24.1 UG/DL (4.3-22.4)
[2021-12-15] MEDS ORDERED: NS 1,000 ML IV SCH (10:10)
[2021-12-15 17:53] LABS: CALCIUM LEVEL 8.8 MG/DL (8.8-10.2); CREATININE FOR GFR 1.7 MG/DL (0.70-1.30); GLOMERULAR FILTRATION RATE 42.3 (>42); POTASSIUM SERUM 4.5 MEQ/L (3.5-5.1)
[2021-12-15] MEDS: **hydrALAZINE** 10 MG TAB PO PRN (20:39)
[2021-12-16] VITALS (7 sets, daily range): BP systolic 84–174; BP diastolic 52–88
[2021-12-16] MEDS: NS 0.45% 1,000 ML IV SCH ×2 (06:28→17:56)
[2021-12-16] MEDS: ASPIRIN 81 MG CHEW TABLET PO SCH (09:58)
[2021-12-16] MEDS: CLOPIDOGREL 75 MG TAB PO SCH (09:58)
[2021-12-16] MEDS: THIAMINE 100 MG TAB PO SCH (09:59)
[2021-12-16] MEDS: SIMVASTATIN 20 MG TAB PO SCH (09:59)
[2021-12-16] MEDS: FAMOTIDINE 20 MG TAB PO SCH ×2 (09:59→20:22)
[2021-12-16] MEDS: OCUVITE 1 TAB PO SCH (09:59)
[2021-12-16] MEDS: metFORMIN XR 500MG TAB *GLUCOPHAGE XR PO SCH ×2 (09:59→17:55)
[2021-12-16 10:37] LABS: HEMATOCRIT 33.6 % (42.0-52.0); HEMOGLOBIN 11.4 g/dl (13.5-17.5); MEAN CORPUSCULAR HEMOGLOBIN 31.1 pg (27.0-33.0); MEAN CORPUSCULAR HGB CONC 33.9 g/dl (32.0-36.5); MEAN CORPUSCULAR VOLUME 91.8 fl (80.0-96.0); PLATELET COUNT, AUTOMATED 335 10^3/uL (150-450); RED BLOOD COUNT 3.66 10^6/uL (4.30-6.10); WHITE BLOOD COUNT 8.2 10^3/uL (4.0-10.0)
[2021-12-16 11:11] LABS: CALCIUM LEVEL 8.8 MG/DL (8.8-10.2); CREATININE FOR GFR 1.49 MG/DL (0.70-1.30); GLOMERULAR FILTRATION RATE 49.2 (>42); POTASSIUM SERUM 5.3 MEQ/L (3.5-5.1)
[2021-12-16] MEDS ORDERED: CALCIUM GLUCONATE 1,000 MG in D5W MINI-BAG PLUS 100 ML IV ONE (13:00)
[2021-12-16] MEDS: FLUDROCORTISONE ACETATE 0.1 MG TAB PO SCH (14:57)
[2021-12-17] MEDS: NS 0.45% 1,000 ML IV SCH (02:20)
[2021-12-17 03:48] VITALS: BP_SYST 109; BP_SYST 198; BP_DIAS 63; BP_DIAS 93
[2021-12-17] MEDS: **hydrALAZINE** 10 MG TAB PO PRN (03:48)
[2021-12-17 04:00] VITALS: BP 190/90
[2021-12-17 04:46] VITALS: BP 162/77
[2021-12-17 06:00] LABS: HEMATOCRIT 28.4 % (42.0-52.0); HEMOGLOBIN 9.8 g/dl (13.5-17.5); MEAN CORPUSCULAR HEMOGLOBIN 31.3 pg (27.0-33.0); MEAN CORPUSCULAR HGB CONC 34.5 g/dl (32.0-36.5); MEAN CORPUSCULAR VOLUME 90.7 fl (80.0-96.0); PLATELET COUNT, AUTOMATED 228 10^3/uL (150-450); RED BLOOD COUNT 3.13 10^6/uL (4.30-6.10); WHITE BLOOD COUNT 7.6 10^3/uL (4.0-10.0)
[2021-12-17 06:25] LABS: CALCIUM LEVEL 8.4 MG/DL (8.8-10.2); CREATININE FOR GFR 1.29 MG/DL (0.70-1.30); GLOMERULAR FILTRATION RATE 58.1 (>42); POTASSIUM SERUM 3.6 MEQ/L (3.5-5.1)
[2021-12-17 08:00] VITALS: BP 168/84
[2021-12-17] MEDS ORDERED: **hydrALAZINE HCL** 25 MG TAB PO ONE (08:05)
[2021-12-17] MEDS ORDERED: HYDR25TA PO (08:08)
[2021-12-17] MEDS ORDERED: FLUD0.1T PO ×2 (08:08→12:39)
[2021-12-17] MEDS: OCUVITE 1 TAB PO SCH (08:21)
[2021-12-17] MEDS: metFORMIN XR 500MG TAB *GLUCOPHAGE XR PO SCH (08:21)
[2021-12-17] MEDS: FAMOTIDINE 20 MG TAB PO SCH (08:21)
[2021-12-17] MEDS: ASPIRIN 81 MG CHEW TABLET PO SCH (08:21)
[2021-12-17] MEDS: SIMVASTATIN 20 MG TAB PO SCH (08:22)
[2021-12-17] MEDS: CLOPIDOGREL 75 MG TAB PO SCH (08:22)
[2021-12-17] MEDS: THIAMINE 100 MG TAB PO SCH (08:22)
[2021-12-17 08:23] VITALS: BP 168/84
[2021-12-17] MEDS: FLUDROCORTISONE ACETATE 0.1 MG TAB PO SCH (08:23)
[2021-12-17 10:28] VITALS: BP 104/59
[2021-12-17] MEDS ORDERED: HYDR5TAB PO (10:38)
[2021-12-17] MEDS ORDERED: HYDR10TAB PO (12:39)
[2021-12-17] MEDS ORDERED: ASPI81CH33 PO (12:40)
[2021-12-17] MEDS ORDERED: PLAV1TAB2 PO (12:40)
[2021-12-17] MEDS ORDERED: **hydrALAZINE** 10 MG TAB PO PRN (12:40)
[2021-12-17] MEDS ORDERED: **hydrALAZINE HCL** 25 MG TAB PO SCH (16:00)
== END 2021-12-17 13:53 | disposition home health service (06) | DRG 65 ==
LOC: M ED 15:21 → M ED INP 17:00 → ENRESERV 19:33 → M PCU 20:44
PROVIDERS: ADMIT Internal Medicine; ATTEND Internal Medicine
DX: I63.9 Cerebral infarction, unspecified (principal); N17.9 Acute kidney failure, unspecified; E87.0 Hyperosmolality and hypernatremia; M10.9 Gout, unspecified; I16.0 Hypertensive urgency; Z79.82 Long term (current) use of aspirin; I95.1 Orthostatic hypotension; R47.1 Dysarthria and anarthria; E78.5 Hyperlipidemia, unspecified; K21.9 Gastro-esophageal reflux disease without esophagitis; E11.22 Type 2 diabetes mellitus with diabetic chronic kidney disease; Z79.899 Other long term (current) drug therapy; N18.30 Chronic kidney disease, stage 3 unspecified

== ENCOUNTER 2022-11-16 21:24 | Emergency (ER) | payer MEDICARE ==
[~2022-11-16] VITALS: Ht 172.7 cm; Wt 68.2 kg
[~2022-11-16 21:24] MED LIST changes: +ASPI325T49 PO; +ASPI81CH33 PO; +CLOP75TA2 PO; +CLOP75TA99 PO; +FLUD0.1T PO; +HYDR10TAB PO; +HYDR25TA PO; +HYDR5TAB PO
[2022-11-16] MEDS: METOPROLOL 5 MG/5 ML VIAL IV SCH ×4 (21:54→22:31)
[2022-11-16 21:55] LABS: BASO % 0.4 % (0.0-1.0); EOS # 0.1 10^3/uL (0.0-0.5); EOS % 1.3 % (0.0-3.0); HEMOGLOBIN 11.5 g/dl (13.5-17.5); LYMPH # 1.4 10^3/uL (1.5-5.0); LYMPH % 16.2 % (24.0-44.0); MEAN CORPUSCULAR HEMOGLOBIN 30.8 pg (27.0-33.0); MEAN CORPUSCULAR HGB CONC 33.8 g/dl (32.0-36.5); MEAN CORPUSCULAR VOLUME 91.2 fl (80.0-96.0); MONO # 0.8 10^3/uL (0.0-0.8); MONO % 9.6 % (2.0-8.0); NEUTROPHILS % 71.9 % (36.0-66.0); PLATELET COUNT, AUTOMATED 318 10^3/uL (150-450); RED BLOOD COUNT 3.73 10^6/uL (4.30-6.10); WHITE BLOOD COUNT 8.3 10^3/uL (4.0-10.0)
[2022-11-16] MEDS ORDERED: METOPROLOL TART 25 MG TABLET PO ONE (22:25)
[2022-11-16 22:27] LABS: RSV AMPLIFICATION NEGATIVE (NEGATIVE)
[2022-11-16 22:37] VITALS: BP 108/72
[2022-11-16 23:35] LABS: ALBUMIN 3.1 G/DL (3.2-5.2); BILIRUBIN,TOTAL 0.4 MG/DL (0.3-1.2); CALCIUM LEVEL 8.3 MG/DL (8.3-10.6); CK-MB VALUE MASS 1.8 NG/ML (<3.6); CREATININE FOR GFR 1.52 MG/DL (0.70-1.30); MAGNESIUM LEVEL 1.4 MG/DL (1.8-2.4); MB/CK RELATIVE INDEX 4.61 (< OR =4); POTASSIUM SERUM 3.5 MMOL/L (3.5-5.1); THYROID STIMULATING HORMONE 1.577 uIU/ML (0.55-4.78)
[2022-11-16] MEDS ORDERED: NS 1,000 ML IV ONE (23:40)
[2022-11-17 00:48] LABS: CK-MB VALUE MASS 4.6 NG/ML (<3.6)
[2022-11-17 00:50] LABS: MB/CK RELATIVE INDEX 6.86 (< OR =4)
[2022-11-17] MEDS ORDERED: DIGOXIN INJ 0.5 MG/2 ML AMP IV ONE (00:55)
[2022-11-17] MEDS ORDERED: HEPARIN DRIP 25,000 UNITS in IV 1 EA IV SCH (00:55)
[2022-11-17 01:40] LABS: INR 1.11; PROTHROMBIN TIME 14.5 SECONDS (12.5-14.5)
[2022-11-17 01:41] LABS: PARTIAL THROMBOPLASTIN TIME 30.1 SECONDS (24.8-34.2)
[2022-11-17 02:51] LABS: CK-MB VALUE MASS 12.2 NG/ML (<3.6)
[2022-11-17 02:56] LABS: MB/CK RELATIVE INDEX 8.97 (< OR =4)
[2022-11-17 04:00] VITALS: BP 135/67
== END 2022-11-17 04:00 | disposition short-term general hospital (02) ==
LOC: M ED 21:24 → EDBD 21:24 → M ED 11-17 04:00
DX: I21.4 Non-ST elevation (NSTEMI) myocardial infarction (principal); I48.0 Paroxysmal atrial fibrillation; I44.4 Left anterior fascicular block; E11.9 Type 2 diabetes mellitus without complications; I10 Essential (primary) hypertension; E78.5 Hyperlipidemia, unspecified; K21.9 Gastro-esophageal reflux disease without esophagitis; Z79.84 Long term (current) use of oral hypoglycemic drugs; Z86.73 Personal history of transient ischemic attack (TIA), and cerebral infarction without residual deficits; Z87.891 Personal history of nicotine dependence; Z79.82 Long term (current) use of aspirin; Z79.899 Other long term (current) drug therapy
CPT/HCPCS: 71045; 80053; 82550; 82553; 83735; 83880; 84443; 84484; 85025; 85610; 85730; 87631; 93005; 96361; 96374; 96375; 99285; J1160

== ENCOUNTER → 2022-12-20 | Outpatient (CLI) | payer MEDICARE ==
[~2022-12-20] MED LIST changes: +BARIUM SULFATE 700 MG TABLET (E-Z-DISK) As Ordered ONE; +E-Z-PAQUE 96% w/w SUSP 176GM BTL As Ordered ONE; +VARIBAR NECTAR 40% w/v 240ML SUSP BTL As Ordered ONE; +VARIBAR PUDDING 40% w/v 230ML TUBE As Ordered ONE
== END ==
LOC: M RAD 10:36
PROVIDERS: ATTEND Family Medicine
DX: R13.10 Dysphagia, unspecified (principal)

== ENCOUNTER → 2023-01-10 | Outpatient (REF) | payer MEDICARE ==
[~2023-01-10] MED LIST changes: -BARIUM SULFATE 700 MG TABLET (E-Z-DISK) As Ordered ONE; -E-Z-PAQUE 96% w/w SUSP 176GM BTL As Ordered ONE; -VARIBAR NECTAR 40% w/v 240ML SUSP BTL As Ordered ONE; -VARIBAR PUDDING 40% w/v 230ML TUBE As Ordered ONE
[2023-01-10 18:26] LABS: FERRITIN 206.2 NG/ML (10.5-307.3)
[2023-01-10 18:27] LABS: FOLATE 22.7 NG/ML (>5.4); PERCENT SATURATION 23.4 % (19.7-50.0)
== END ==
LOC: M LAB REF 16:54
PROVIDERS: ATTEND Family Medicine
DX: D64.9 Anemia, unspecified (principal)

== ENCOUNTER → 2023-01-19 | Outpatient (CLI) | payer MEDICARE | LOC: M RAD 08:28 | PROVIDERS: ATTEND Family Medicine | DX: F17.210 Nicotine dependence, cigarettes, uncomplicated (principal); K22.89 Other specified disease of esophagus ==

== ENCOUNTER → 2023-03-03 | Outpatient (CLI) | payer MEDICARE | LOC: M EKG 14:25 | PROVIDERS: ATTEND Family Medicine | DX: I10 Essential (primary) hypertension (principal) ==

== ENCOUNTER 2023-03-14 13:27 | Outpatient (RCR) | payer MEDICARE | END 2023-04-01 | LOC: M ST 13:27 | PROVIDERS: ATTEND Surgery | DX: R13.19 Other dysphagia (principal) ==

== ENCOUNTER 2023-03-20 17:44 | Emergency (ER) | payer MEDICARE ==
[~2023-03-20] VITALS: Ht 172.7 cm; Wt 74.4 kg
[2023-03-20 19:40] LABS: BASO % 0.3 % (0.0-1.0); EOS # 0.1 10^3/uL (0.0-0.5); EOS % 0.9 % (0.0-3.0); HEMATOCRIT 30.2 % (42.0-52.0); HEMOGLOBIN 9.9 g/dl (13.5-17.5); LYMPH # 1.7 10^3/uL (1.5-5.0); LYMPH % 18.2 % (24.0-44.0); MEAN CORPUSCULAR HEMOGLOBIN 31.3 pg (27.0-33.0); MEAN CORPUSCULAR HGB CONC 32.8 g/dl (32.0-36.5); MEAN CORPUSCULAR VOLUME 95.6 fl (80.0-96.0); MONO # 0.9 10^3/uL (0.0-0.8); MONO % 9.4 % (2.0-8.0); NEUTROPHILS # 6.8 10^3/uL (1.5-8.5); NEUTROPHILS % 70.8 % (36.0-66.0); PLATELET COUNT, AUTOMATED 269 10^3/uL (150-450); RED BLOOD COUNT 3.16 10^6/uL (4.30-6.10); WHITE BLOOD COUNT 9.6 10^3/uL (4.0-10.0)
[2023-03-20 20:27] LABS: CALCIUM LEVEL 8.8 MG/DL (8.3-10.6); CREATININE FOR GFR 1.45 MG/DL (0.70-1.30); GLOMERULAR FILTRATION RATE 50.6 (>42); MAGNESIUM LEVEL 1.5 MG/DL (1.8-2.4); MB/CK RELATIVE INDEX 3.12 (< OR =4); POTASSIUM SERUM 3.9 MMOL/L (3.5-5.1); THYROID STIMULATING HORMONE 1.327 uIU/ML (0.55-4.78)
[2023-03-20 21:22] LABS: CK-MB VALUE MASS 3.2 NG/ML (<3.6)
[2023-03-20 21:24] LABS: MB/CK RELATIVE INDEX 4.92 (< OR =4)
[2023-03-20 23:52] LABS: CK-MB VALUE MASS 4.7 NG/ML (<3.6); MB/CK RELATIVE INDEX 5.34 (< OR =4)
[2023-03-21] MEDS: HEPARIN DRIP 25,000 UNITS in IV 1 EA IV SCH ×3 (00:15→00:49)
[2023-03-21 00:49] LABS: INR 1.53; PROTHROMBIN TIME 18.7 SECONDS (12.5-14.5)
[2023-03-21 02:59] VITALS: BP 184/86; TEMP 98.8; O2SAT 98
== END 2023-03-21 03:31 | disposition short-term general hospital (02) ==
LOC: M ED 17:44
DX: I21.4 Non-ST elevation (NSTEMI) myocardial infarction (principal); N18.9 Chronic kidney disease, unspecified; R00.2 Palpitations; I44.5 Left posterior fascicular block; E11.9 Type 2 diabetes mellitus without complications; I10 Essential (primary) hypertension; E78.5 Hyperlipidemia, unspecified; K21.9 Gastro-esophageal reflux disease without esophagitis; Z79.01 Long term (current) use of anticoagulants; Z79.4 Long term (current) use of insulin; Z79.899 Other long term (current) drug therapy

== ENCOUNTER → 2023-04-20 | Outpatient (REF) | payer MEDICARE ==
[2023-04-20 17:51] LABS: IRON (FE) 49 UG/DL (65-175)
[2023-04-20 17:52] LABS: TOTAL IRON BINDING CAPACITY 272 UG/DL (250-425)
[2023-04-20 17:54] LABS: FOLATE > 24.0 NG/ML (>5.4); VITAMIN B12 LEVEL 590 PG/ML (211-911)
== END ==
LOC: M LAB REF 16:31
PROVIDERS: ATTEND Family Medicine
DX: D64.9 Anemia, unspecified (principal)

== ENCOUNTER 2023-07-07 08:56 | Day surgery (SDC) | payer MEDICARE ==
[~2023-07-07] VITALS: Ht 172.7 cm; Wt 64.9 kg
[~2023-07-07 08:56] MED LIST changes: +ATOR80TA59 PO; +ELIQ5TAB PO; +HYDR-3911 PO; +METO1TAB32 PO; +NS 1,000 ML IV ONE; +VITMTA PO
[2023-07-07] MEDS ORDERED: propofoL 200 MG/20 ML VIAL As Ordered ONE ×2 (09:30→10:13)
[2023-07-07] MEDS ORDERED: LIDOCAINE 2% 100MG/5ML SDV (FOR ANES.) As Ordered ONE (09:31)
[2023-07-07 10:22] VITALS: TEMP 97.7
[2023-07-07 10:50] VITALS: BP 108/61; O2SAT 96
== END 2023-07-07 11:20 | disposition home or self-care (01) ==
LOC: M OPP 08:56
PROVIDERS: ATTEND Surgery
DX: K22.89 Other specified disease of esophagus (principal); K29.70 Gastritis, unspecified, without bleeding; I48.91 Unspecified atrial fibrillation; G47.30 Sleep apnea, unspecified; Z99.89 Dependence on other enabling machines and devices; I25.2 Old myocardial infarction; Z86.73 Personal history of transient ischemic attack (TIA), and cerebral infarction without residual deficits; E11.9 Type 2 diabetes mellitus without complications; Z87.891 Personal history of nicotine dependence; Z79.01 Long term (current) use of anticoagulants; Z79.02 Long term (current) use of antithrombotics/antiplatelets; Z79.82 Long term (current) use of aspirin; Z79.84 Long term (current) use of oral hypoglycemic drugs; Z79.899 Other long term (current) drug therapy

== ENCOUNTER 2023-07-18 10:28 | Emergency (ER) | payer MEDICARE ==
[~2023-07-18] VITALS: Ht 172.7 cm; Wt 60.5 kg
[~2023-07-18 10:28] MED LIST changes: -NS 1,000 ML IV ONE
[2023-07-18 10:29] VITALS: BP 76/50; TEMP 97.6; O2SAT 99
== END 2023-07-18 12:19 | disposition left against medical advice (07) ==
LOC: M ED 10:28
DX: Z53.21 Procedure and treatment not carried out due to patient leaving prior to being seen by health care provider (principal)

== ENCOUNTER → 2023-07-19 | Outpatient (REF) | payer MEDICARE ==
[2023-07-19 13:25] LABS: PERCENT SATURATION 17.1 % (19.7-50.0)
[2023-07-19 13:27] LABS: FERRITIN 100.8 NG/ML (10.5-307.3)
[2023-07-19 13:28] LABS: FOLATE 22.5 NG/ML (>5.4)
== END ==
LOC: M LAB REF 12:30
PROVIDERS: ATTEND Family Medicine
DX: D64.9 Anemia, unspecified (principal)

== ENCOUNTER → 2023-08-09 | Outpatient (REF) | payer MEDICARE ==
[~2023-08-09] MED LIST changes: +ACET-683 PO; +METF500T13 PO; +PANT40TA29 PO
[2023-08-09 13:48] LABS: BASO % 0.6 % (0.0-1.0); EOS # 0.1 10^3/uL (0.0-0.5); HEMATOCRIT 26.7 % (42.0-52.0); HEMOGLOBIN 8.8 g/dl (13.5-17.5); LYMPH # 1.3 10^3/uL (1.5-5.0); LYMPH % 18.3 % (24.0-44.0); MEAN CORPUSCULAR HEMOGLOBIN 31.4 pg (27.0-33.0); MEAN CORPUSCULAR VOLUME 95.4 fl (80.0-96.0); MONO # 0.6 10^3/uL (0.0-0.8); MONO % 8.7 % (2.0-8.0); NEUTROPHILS # 4.9 10^3/uL (1.5-8.5); PLATELET COUNT, AUTOMATED 337 10^3/uL (150-450); WHITE BLOOD COUNT 6.9 10^3/uL (4.0-10.0)
== END ==
LOC: M LAB REF 12:35
PROVIDERS: ATTEND Family Medicine
DX: I25.10 Atherosclerotic heart disease of native coronary artery without angina pectoris (principal); D64.9 Anemia, unspecified; N18.31 Chronic kidney disease, stage 3a

== ENCOUNTER 2023-08-28 11:52 | Inpatient (IN) | payer MEDICARE ==
[~2023-08-28] VITALS: Ht 172.7 cm; Wt 61.5 kg
[~2023-08-28 11:52] MED LIST changes: -ACET-683 PO; +METOPROLOL SUCC *XL* 25MG TAB (TopROL *XL*) PO SCH
[2023-08-28 12:41] LABS: BASO % 0.3 % (0.0-1.0); EOS % 0.4 % (0.0-3.0); HEMATOCRIT 30.2 % (42.0-52.0); HEMOGLOBIN 9.9 g/dl (13.5-17.5); LYMPH # 0.9 10^3/uL (1.5-5.0); LYMPH % 9.5 % (24.0-44.0); MEAN CORPUSCULAR HGB CONC 32.8 g/dl (32.0-36.5); MEAN CORPUSCULAR VOLUME 94.7 fl (80.0-96.0); MONO # 0.3 10^3/uL (0.0-0.8); MONO % 3.8 % (2.0-8.0); NEUTROPHILS # 7.7 10^3/uL (1.5-8.5); NEUTROPHILS % 85.3 % (36.0-66.0); PLATELET COUNT, AUTOMATED 339 10^3/uL (150-450); RED BLOOD COUNT 3.19 10^6/uL (4.30-6.10)
[2023-08-28 13:07] LABS: ALBUMIN 3.3 G/DL (3.2-5.2); ALKALINE PHOSPHATASE 79 U/L (46-116); ALT/SGPT 10 U/L (7.0-40); AST/SGOT 11 U/L (<34); BILIRUBIN,DIRECT 0.2 MG/DL (<0.4); BILIRUBIN,TOTAL 0.6 MG/DL (0.3-1.2); CK-MB VALUE MASS < 1.0 NG/ML (<3.6); CPK CREATINE PHOSPHOKINASE 28 U/L (46-171); MB/CK RELATIVE INDEX 3.57 (< OR =4); TOTAL PROTEIN 6.7 G/DL (5.7-8.2)
[2023-08-28 13:11] LABS: THYROID STIMULATING HORMONE 1.185 uIU/ML (0.55-4.78)
[2023-08-28 13:43] LABS: BLOOD UREA NITROGEN 22 MG/DL (9-23); CARBON DIOXIDE LEVEL 28 MMOL/L (20-31); CHLORIDE LEVEL 105 MMOL/L (98-107); CREATININE FOR GFR 1.42 MG/DL (0.70-1.30); GLOMERULAR FILTRATION RATE 51.7 (>42); GLUCOSE, FASTING 113 MG/DL (74-106); POTASSIUM SERUM 3.8 MMOL/L (3.5-5.1); SODIUM LEVEL 148 MMOL/L (136-145)
[2023-08-28 14:10] LABS: MAGNESIUM LEVEL 1.6 MG/DL (1.8-2.4)
[2023-08-28] MEDS ORDERED: NS 500 ML IV ONE (16:00)
[2023-08-28] MEDS ORDERED: MAG SULF 1GM/100ML (MAG RUN) 1 GM in IV 1 EA IV ONE (16:05)
[2023-08-28] MEDS ORDERED: ACET-683 PO (16:39)
[2023-08-28] MEDS ORDERED: HOME MED LIST COMPLETE! XX SCH (16:40)
[2023-08-28] MEDS ORDERED: NS 1,000 ML IV SCH (17:10)
[2023-08-28] MEDS ORDERED: HEPARIN SOD (PORCINE) 5000UNITS/ML 1ML VIAL/SYRINGE IV PRN (17:20)
[2023-08-28] MEDS ORDERED: GLUCOSE 4GM CHEW TABLET PO PRN (17:30)
[2023-08-28] MEDS ORDERED: GLUCAGON INJ 1MG VIAL SC PRN (17:30)
[2023-08-28] MEDS ORDERED: DEXTROSE 50% 50ML SYRINGE IV PRN (17:30)
[2023-08-28 18:50] VITALS: BP 148/76; TEMP 98.4; O2SAT 97
[2023-08-28 18:51] LABS: IRON (FE) 26 UG/DL (65-175); PERCENT SATURATION 11.3 % (19.7-50.0); TOTAL IRON BINDING CAPACITY 231 UG/DL (250-425)
[2023-08-28 18:53] LABS: FERRITIN 224.9 NG/ML (10.5-307.3)
[2023-08-28 18:54] LABS: FOLATE 17.36 NG/ML (>5.4)
[2023-08-28 20:00] VITALS: BP 128/77; TEMP 98.4; O2SAT 90
[2023-08-28] MEDS: INSULIN LISPRO (NovoLOG) PER UNIT SC SCH (20:00)
[2023-08-28] MEDS: PANTOPRAZOLE 40MG VIAL IV SCH (21:30)
[2023-08-28] MEDS: HEPARIN DRIP 25,000 UNITS in IV 1 EA IV SCH (21:45)
[2023-08-28 23:37] VITALS: BP 158/80; TEMP 99.3; O2SAT 95
[2023-08-29] VITALS (8 sets, daily range): BP systolic 91–173; BP diastolic 52–80; TEMP 98.9–99.9; O2SAT 91–95
[2023-08-29 04:57] LABS: CALCIUM LEVEL 8.1 MG/DL (8.3-10.6); CREATININE FOR GFR 1.28 MG/DL (0.70-1.30); GLOMERULAR FILTRATION RATE 58.3 (>42); MAGNESIUM LEVEL 1.7 MG/DL (1.8-2.4); POTASSIUM SERUM 3.5 MMOL/L (3.5-5.1)
[2023-08-29] MEDS: INSULIN LISPRO (NovoLOG) PER UNIT SC SCH ×3 (06:00→11:59)
[2023-08-29] MEDS ORDERED: D5W/LR 1,000 ML IV SCH (06:30)
[2023-08-29] MEDS: PANTOPRAZOLE 40MG VIAL IV SCH (08:29)
[2023-08-29] MEDS: MAG SULF 1GM/100ML (MAG RUN) 1 GM in IV 1 EA IV SCH ×2 (08:29→09:55)
[2023-08-29] MEDS: KCL 10MEQ/100ML SWI (KRUN) 10 MEQ in IV 1 EA IV SCH ×2 (09:55→15:25)
[2023-08-29] MEDS ORDERED: KCL 10MEQ IN STERILE WATER 100ML As Ordered ONE (15:19)
[2023-08-30] VITALS (11 sets, daily range): BP systolic 120–188; BP diastolic 60–88; TEMP 97.9–101.4; O2SAT 93–99
[2023-08-30] MEDS ORDERED: ACETAMINOPHEN *IV* 1,000 MG in IV 1 EA IV ONE (05:00)
[2023-08-30 05:20] LABS: BLOOD UREA NITROGEN 20 MG/DL (9-23); CARBON DIOXIDE LEVEL 28 MMOL/L (20-31); CHLORIDE LEVEL 102 MMOL/L (98-107); CREATININE FOR GFR 1.15 MG/DL (0.70-1.30); GLOMERULAR FILTRATION RATE > 60.0 (>42); GLUCOSE, FASTING 141 MG/DL (74-106); MAGNESIUM LEVEL 1.6 MG/DL (1.8-2.4); POTASSIUM SERUM 3.4 MMOL/L (3.5-5.1); SODIUM LEVEL 138 MMOL/L (136-145)
[2023-08-30 05:39] LABS: BASO % 0.2 % (0.0-1.0); EOS # 0.1 10^3/uL (0.0-0.5); EOS % 0.7 % (0.0-3.0); HEMATOCRIT 23.6 % (42.0-52.0); LYMPH # 0.9 10^3/uL (1.5-5.0); LYMPH % 5.8 % (24.0-44.0); MEAN CORPUSCULAR HGB CONC 33.1 g/dl (32.0-36.5); MEAN CORPUSCULAR VOLUME 93.7 fl (80.0-96.0); MONO # 0.6 10^3/uL (0.0-0.8); NEUTROPHILS # 14.2 10^3/uL (1.5-8.5); NEUTROPHILS % 87.9 % (36.0-66.0); PLATELET COUNT, AUTOMATED 249 10^3/uL (150-450); RED BLOOD COUNT 2.52 10^6/uL (4.30-6.10); WHITE BLOOD COUNT 16.1 10^3/uL (4.0-10.0)
[2023-08-30 05:46] LABS: HEMOGLOBIN 7.8 g/dl (13.5-17.5)
[2023-08-30] MEDS ORDERED: POTASSIUM CHLORIDE 10MEQ SR TABLET PO ONE (06:00)
[2023-08-30] MEDS: MAG SULF 1GM/100ML (MAG RUN) 100 ML IV SCH ×2 (06:08→10:02)
[2023-08-30] MEDS: KCL 10MEQ/100ML SWI (KRUN) 100 ML IV SCH ×3 (06:09→10:01)
[2023-08-30] MEDS ORDERED: propofoL 200 MG/20 ML VIAL As Ordered ONE (06:45)
[2023-08-30] MEDS ORDERED: LIDOCAINE 2% 100MG/5ML SDV (FOR ANES.) As Ordered ONE (06:45)
[2023-08-30] MEDS ORDERED: fentaNYL 100 MCG/2 ML INJECTION As Ordered ONE (06:46)
[2023-08-30] MEDS ORDERED: PHENYLephrine 500MCG 5ML (100MCG/ML) SYRINGE As Ordered ONE (07:11)
[2023-08-30] MEDS ORDERED: ePHEDrine SULFATE 25 MG/5 ML(5MG/ML) SYRINGE As Ordered ONE (07:11)
[2023-08-30] MEDS ORDERED: LR 1,000 ML IV SCH (07:20)
[2023-08-30 07:28] LABS: PROCALCITONIN 1.25 ng/ml
[2023-08-30 09:17] LABS: HEMATOCRIT 23.1 % (42.0-52.0); HEMOGLOBIN 7.6 g/dl (13.5-17.5)
[2023-08-30 09:21] LABS: ERYTHROCYTE SEDIMENTATION RATE 55 mm/hr (0-20)
[2023-08-30 09:46] LABS: C REACTIVE PROTEIN QUANTITATIV 11.4 MG/DL (<1.0); MAGNESIUM LEVEL 1.9 MG/DL (1.8-2.4); POTASSIUM SERUM 3.6 MMOL/L (3.5-5.1)
[2023-08-30 09:55] LABS: PROCALCITONIN 1.2 ng/ml
[2023-08-30] MEDS: PANTOPRAZOLE 40MG VIAL IV SCH (10:02)
[2023-08-30] MEDS: PIPERACILLIN/TAZOBACTAM SOD 4.5 GM in D5W MINI-BAG PLUS 50 ML IV SCH ×4 (10:02→23:40)
[2023-08-30 10:35] LABS: PERCENT SATURATION 3.8 % (19.7-50.0)
[2023-08-30 10:37] LABS: FERRITIN 239.9 NG/ML (10.5-307.3)
[2023-08-30] MEDS ORDERED: MAG SULF 1GM/100ML (MAG RUN) 1 GM in IV 1 EA IV ONE ×2 (11:00→20:00)
[2023-08-30] MEDS: HEPARIN DRIP 25,000 UNITS in IV 1 EA IV SCH (12:28)
[2023-08-30] MEDS ORDERED: KCL 10MEQ/100ML SWI (KRUN) 10 MEQ in IV 1 EA IV ONE ×2 (13:00→20:00)
[2023-08-30] MEDS: ISOSORBIDE DIN. (ISORDIL) 20 MG TAB PO SCH ×2 (16:40→23:41)
[2023-08-30] MEDS ORDERED: SODIUM CHLORIDE 0.9% INJ 10 ML SYR IV PRN (18:00)
[2023-08-30] MEDS: SODIUM CHLORIDE 0.9% INJ 10 ML SYR IV SCH (18:00)
[2023-08-30 19:30] LABS: MAGNESIUM LEVEL 1.9 MG/DL (1.8-2.4); POTASSIUM SERUM 3.8 MMOL/L (3.5-5.1)
[2023-08-31 03:46] VITALS: BP 168/92; TEMP 98.5; O2SAT 96
[2023-08-31] MEDS: PIPERACILLIN/TAZOBACTAM SOD 4.5 GM in D5W MINI-BAG PLUS 50 ML IV SCH ×4 (04:35→22:13)
[2023-08-31] MEDS: ISOSORBIDE DIN. (ISORDIL) 20 MG TAB PO SCH (05:07)
[2023-08-31] MEDS: SODIUM CHLORIDE 0.9% INJ 10 ML SYR IV SCH ×2 (05:22→18:00)
[2023-08-31 06:20] LABS: BLOOD UREA NITROGEN 14 MG/DL (9-23); CALCIUM LEVEL 7.7 MG/DL (8.3-10.6); CARBON DIOXIDE LEVEL 30 MMOL/L (20-31); CHLORIDE LEVEL 104 MMOL/L (98-107); CREATININE FOR GFR 1.15 MG/DL (0.70-1.30); GLOMERULAR FILTRATION RATE > 60.0 (>42); GLUCOSE, FASTING 141 MG/DL (74-106); MAGNESIUM LEVEL 1.9 MG/DL (1.8-2.4); POTASSIUM SERUM 3.7 MMOL/L (3.5-5.1); SODIUM LEVEL 142 MMOL/L (136-145)
[2023-08-31 07:26] VITALS: BP 174/84; TEMP 98.4; O2SAT 98
[2023-08-31] MEDS ORDERED: HEPARIN SOD (PORCINE) 5000UNITS/ML 1ML VIAL/SYRINGE IV PRN (08:00)
[2023-08-31] MEDS ORDERED: HEPARIN DRIP 25,000 UNITS in IV 1 EA IV SCH (08:00)
[2023-08-31] MEDS: hydrALAZINE 20MG/ML 1ML VIAL IV SCH ×5 (08:19→23:49)
[2023-08-31] MEDS: PANTOPRAZOLE 40MG VIAL IV SCH (08:19)
[2023-08-31 08:36] LABS: BASO # 0.1 10^3/uL (0.0-0.2); BASO % 0.4 % (0.0-1.0); EOS # 0.4 10^3/uL (0.0-0.5); EOS % 3.1 % (0.0-3.0); HEMATOCRIT 26.4 % (42.0-52.0); LYMPH # 0.9 10^3/uL (1.5-5.0); LYMPH % 8.2 % (24.0-44.0); MEAN CORPUSCULAR HEMOGLOBIN 31.5 pg (27.0-33.0); MEAN CORPUSCULAR HGB CONC 34.1 g/dl (32.0-36.5); MEAN CORPUSCULAR VOLUME 92.3 fl (80.0-96.0); MONO # 0.5 10^3/uL (0.0-0.8); MONO % 4.5 % (2.0-8.0); NEUTROPHILS # 9.5 10^3/uL (1.5-8.5); NEUTROPHILS % 83.1 % (36.0-66.0); PLATELET COUNT, AUTOMATED 216 10^3/uL (150-450); RED BLOOD COUNT 2.86 10^6/uL (4.30-6.10); WHITE BLOOD COUNT 11.4 10^3/uL (4.0-10.0)
[2023-08-31] MEDS: DOXYCYCLINE HYCLATE 100 MG in D5W MINI-BAG PLUS 100 ML IV SCH ×2 (10:05→20:17)
[2023-08-31 12:53] VITALS: BP 160/78; TEMP 98.6; O2SAT 96
[2023-08-31 13:36] LABS: HEMATOCRIT 28.2 % (42.0-52.0); HEMOGLOBIN 9.3 g/dl (13.5-17.5); MEAN CORPUSCULAR HEMOGLOBIN 30.1 pg (27.0-33.0); MEAN CORPUSCULAR VOLUME 91.3 fl (80.0-96.0); PLATELET COUNT, AUTOMATED 223 10^3/uL (150-450); RED BLOOD COUNT 3.09 10^6/uL (4.30-6.10); WHITE BLOOD COUNT 10.4 10^3/uL (4.0-10.0)
[2023-08-31] MEDS: NITROGLYCERIN 2% OINT 1 GM *U/D* PKT TOP SCH ×2 (13:49→20:16)
[2023-08-31 13:51] LABS: INR 1.46; PROTHROMBIN TIME 17.3 SECONDS (12.5-14.5)
[2023-08-31 13:52] LABS: PARTIAL THROMBOPLASTIN TIME 59.3 SECONDS (24.8-34.2)
[2023-08-31 16:00] VITALS: BP 122/70; TEMP 98.6; O2SAT 93
[2023-08-31] MEDS: INSULIN LISPRO (NovoLOG) PER UNIT SC SCH ×3 (17:59→23:57)
[2023-08-31] MEDS ORDERED: AMINO AC/ELECTROLYTE/DEX/CALC 1,000 ML IV SCH (18:00)
[2023-08-31] MEDS ORDERED: FAT EMULSION IV 250 ML IV ONE (18:00)
[2023-08-31 20:00] VITALS: BP 143/74; TEMP 98.5; O2SAT 95
[2023-08-31 21:28] LABS: INR 1.48; PROTHROMBIN TIME 17.4 SECONDS (12.5-14.5)
[2023-08-31 21:29] LABS: PARTIAL THROMBOPLASTIN TIME 63.4 SECONDS (24.8-34.2)
[2023-08-31] MEDS: HEPARIN DRIP 25,000 UNITS in IV 1 EA IV SCH (22:16)
[2023-08-31 23:47] VITALS: BP 129/70; TEMP 99.6; O2SAT 93
[2023-09-01] VITALS (12 sets, daily range): BP systolic 104–157; BP diastolic 62–86; TEMP 96.4–100; O2SAT 90–98
[2023-09-01] MEDS: PIPERACILLIN/TAZOBACTAM SOD 4.5 GM in D5W MINI-BAG PLUS 50 ML IV SCH ×4 (04:13→21:59)
[2023-09-01] MEDS: hydrALAZINE 20MG/ML 1ML VIAL IV SCH ×5 (04:14→20:46)
[2023-09-01] MEDS: INSULIN LISPRO (NovoLOG) PER UNIT SC SCH ×3 (04:15→18:00)
[2023-09-01] MEDS: SODIUM CHLORIDE 0.9% INJ 10 ML SYR IV SCH ×2 (04:16→18:00)
[2023-09-01 05:05] LABS: HEMOGLOBIN 8.9 g/dl (13.5-17.5); MEAN CORPUSCULAR HEMOGLOBIN 30.4 pg (27.0-33.0); MEAN CORPUSCULAR VOLUME 92.2 fl (80.0-96.0); PLATELET COUNT, AUTOMATED 248 10^3/uL (150-450); RED BLOOD COUNT 2.93 10^6/uL (4.30-6.10)
[2023-09-01 05:20] LABS: CALCIUM LEVEL 7.8 MG/DL (8.3-10.6); CREATININE FOR GFR 1.26 MG/DL (0.70-1.30); GLOMERULAR FILTRATION RATE 59.4 (>42); MAGNESIUM LEVEL 1.8 MG/DL (1.8-2.4); POTASSIUM SERUM 3.3 MMOL/L (3.5-5.1)
[2023-09-01] MEDS ORDERED: NITROGLYCERIN 2% OINT 1 GM *U/D* PKT TOP ONE (07:25)
[2023-09-01] MEDS: DOXYCYCLINE HYCLATE 100 MG in D5W MINI-BAG PLUS 100 ML IV SCH ×2 (09:04→20:46)
[2023-09-01] MEDS ORDERED: MAG SULF 1GM/100ML (MAG RUN) 1 GM in IV 1 EA IV ONE (10:40)
[2023-09-01] MEDS: PANTOPRAZOLE 40MG VIAL IV SCH (11:16)
[2023-09-01] MEDS: KCL 10MEQ/100ML SWI (KRUN) 10 MEQ in IV 1 EA IV SCH ×3 (11:17→14:11)
[2023-09-01] MEDS ORDERED: LIDOCAINE 2% 100MG/5ML SDV (FOR ANES.) ONE (17:17)
[2023-09-01] MEDS ORDERED: fentaNYL 100 MCG/2 ML INJECTION ONE (17:17)
[2023-09-01] MEDS ORDERED: ONDANSETRON 4MG 2ML VIAL ONE (17:17)
[2023-09-01] MEDS ORDERED: propofoL 200 MG/20 ML VIAL ONE (17:17)
[2023-09-01] MEDS ORDERED: MIDAZOLAM INJ 2MG/2ML VIAL ONE (17:17)
[2023-09-01] MEDS ORDERED: DEX IV SCH (18:00)
[2023-09-01] MEDS ORDERED: ELECTROLYTE IV SCH (18:00)
[2023-09-01] MEDS ORDERED: AMINO AC IV SCH (18:00)
[2023-09-01] MEDS ORDERED: FAT EMULSION IV 250 ML IV ONE (18:00)
[2023-09-01] MEDS ORDERED: POTASSIUM CHLORIDE IV SCH (18:00)
[2023-09-01] MEDS ORDERED: CALC IV SCH (18:00)
[2023-09-01] MEDS ORDERED: MORPHINE 4 MG/ML 1ML VIAL IV PRN (23:00)
[2023-09-01] MEDS ORDERED: MORPHINE 2 MG/ML 1ML VIAL IV PRN (23:00)
[2023-09-02] VITALS (9 sets, daily range): BP systolic 101–159; BP diastolic 57–77; TEMP 97.3–98.6; O2SAT 92–95
[2023-09-02] MEDS: INSULIN LISPRO (NovoLOG) PER UNIT SC SCH ×5 (00:01→23:10)
[2023-09-02] MEDS: PIPERACILLIN/TAZOBACTAM SOD 4.5 GM in D5W MINI-BAG PLUS 50 ML IV SCH (05:19)
[2023-09-02] MEDS: hydrALAZINE 20MG/ML 1ML VIAL IV SCH ×3 (05:20→08:00)
[2023-09-02] MEDS: SODIUM CHLORIDE 0.9% INJ 10 ML SYR IV SCH (05:40)
[2023-09-02 06:42] LABS: HEMATOCRIT 25.6 % (42.0-52.0); HEMOGLOBIN 8.3 g/dl (13.5-17.5); MEAN CORPUSCULAR HEMOGLOBIN 30.3 pg (27.0-33.0); MEAN CORPUSCULAR HGB CONC 32.4 g/dl (32.0-36.5); MEAN CORPUSCULAR VOLUME 93.4 fl (80.0-96.0); PLATELET COUNT, AUTOMATED 209 10^3/uL (150-450); RED BLOOD COUNT 2.74 10^6/uL (4.30-6.10); WHITE BLOOD COUNT 6.1 10^3/uL (4.0-10.0)
[2023-09-02 07:11] LABS: BLOOD UREA NITROGEN 12 MG/DL (9-23); CALCIUM LEVEL 7.9 MG/DL (8.3-10.6); CARBON DIOXIDE LEVEL 29 MMOL/L (20-31); CHLORIDE LEVEL 105 MMOL/L (98-107); CREATININE FOR GFR 1.11 MG/DL (0.70-1.30); GLOMERULAR FILTRATION RATE > 60.0 (>42); GLUCOSE, FASTING 173 MG/DL (74-106); MAGNESIUM LEVEL 1.6 MG/DL (1.8-2.4); POTASSIUM SERUM 3.6 MMOL/L (3.5-5.1); SODIUM LEVEL 141 MMOL/L (136-145)
[2023-09-02] MEDS ORDERED: DOXYCYCLINE HYCLATE 100MG TABLET PO SCH (09:00)
[2023-09-02] MEDS: AUGMENTIN 875 MG TAB PEG SCH ×2 (09:34→21:24)
[2023-09-02] MEDS: PANTOPRAZOLE 40MG VIAL IV SCH (09:34)
[2023-09-02] MEDS: DOXYCYCLINE HYCLATE 100MG TABLET PEG SCH ×2 (09:35→21:24)
[2023-09-02] MEDS ORDERED: AMOX875T2 PEG (11:06)
[2023-09-02] MEDS ORDERED: DOXY100T PEG (11:06)
[2023-09-02] MEDS: FAMOTIDINE 40MG/5ML ORAL SUSPENSON 50ML BOTTLE PEG SCH ×2 (14:17→21:24)
[2023-09-02] MEDS: ATORVASTATIN 20 MG TAB PO SCH (14:18)
[2023-09-02] MEDS: APIXABAN 5 MG TAB (ELIQUIS) PO SCH ×2 (14:19→21:24)
[2023-09-02] MEDS ORDERED: FAT EMULSION IV 250 ML IV ONE (18:00)
[2023-09-02] MEDS ORDERED: MULTIVITAMIN -ADULT INJECTION 10 ML, ZINC/COPPER/MANGANESE/SELENIUM 1 ML in AMINO AC/EL... IV SCH (18:00)
[2023-09-03 06:37] VITALS: BP 153/70; TEMP 98.6; O2SAT 94
[2023-09-03] MEDS: INSULIN LISPRO (NovoLOG) PER UNIT SC SCH (07:07)
[2023-09-03 07:11] LABS: HEMATOCRIT 26.6 % (42.0-52.0); HEMOGLOBIN 8.6 g/dl (13.5-17.5); MEAN CORPUSCULAR HEMOGLOBIN 30.5 pg (27.0-33.0); MEAN CORPUSCULAR HGB CONC 32.3 g/dl (32.0-36.5); MEAN CORPUSCULAR VOLUME 94.3 fl (80.0-96.0); PLATELET COUNT, AUTOMATED 227 10^3/uL (150-450); RED BLOOD COUNT 2.82 10^6/uL (4.30-6.10); WHITE BLOOD COUNT 6.6 10^3/uL (4.0-10.0)
[2023-09-03 07:30] LABS: BLOOD UREA NITROGEN 19 MG/DL (9-23); CALCIUM LEVEL 7.9 MG/DL (8.3-10.6); CARBON DIOXIDE LEVEL 27 MMOL/L (20-31); CHLORIDE LEVEL 103 MMOL/L (98-107); CREATININE FOR GFR 1.02 MG/DL (0.70-1.30); GLOMERULAR FILTRATION RATE > 60.0 (>42); GLUCOSE, FASTING 292 MG/DL (74-106); MAGNESIUM LEVEL 1.6 MG/DL (1.8-2.4); POTASSIUM SERUM 4.2 MMOL/L (3.5-5.1); SODIUM LEVEL 136 MMOL/L (136-145)
[2023-09-03] MEDS: AUGMENTIN 875 MG TAB PEG SCH (09:13)
[2023-09-03] MEDS: DOXYCYCLINE HYCLATE 100MG TABLET PEG SCH (09:13)
[2023-09-03] MEDS: APIXABAN 5 MG TAB (ELIQUIS) PO SCH (09:13)
[2023-09-03] MEDS: PANTOPRAZOLE 40MG VIAL IV SCH (09:13)
[2023-09-03] MEDS: ATORVASTATIN 20 MG TAB PO SCH (09:13)
[2023-09-03] MEDS: FAMOTIDINE 40MG/5ML ORAL SUSPENSON 50ML BOTTLE PEG SCH (09:13)
[2023-09-03] MEDS ORDERED: FAMO40SU9 PEG (10:17)
[2023-09-05] MEDS ORDERED: ASPIRIN 81MG CHEW TABLET PO SCH (09:00)
[2023-09-05 17:07] LABS: BODY FLUID CULTURE Not indicated. (.); LEGIONELLA ANTIGEN URINE Negative (Negative); ORGANISM ID Not indicated. (.); SPECIMEN SOURCE Urine (.); URINE STREP PNEUMONIAE ANTIGEN Negative (Negative)
== END 2023-09-03 12:15 | disposition home health service (06) | DRG 391 ==
LOC: EDBD 11:52 → M ED 11:52 → M ED INP 17:09 → M PCU 18:50 → M MS5PR 09-02 23:37
PROVIDERS: ADMIT Student in an Organized Health Care Education/Training Program; ATTEND General Practice
PROC: 30233N1 Transfusion of Nonautologous Red Blood Cells into Peripheral Vein, Percutaneous Approach (ICD-10-PCS; principal; 2023-08-30 07:30)
PROC: 0DH64UZ Insertion of Feeding Device into Stomach, Percutaneous Endoscopic Approach (ICD-10-PCS; 2023-09-01)
DX: R13.10 Dysphagia, unspecified (principal); J69.0 Pneumonitis due to inhalation of food and vomit; E46 Unspecified protein-calorie malnutrition; E87.0 Hyperosmolality and hypernatremia; E87.1 Hypo-osmolality and hyponatremia; T81.44XA Sepsis following a procedure, initial encounter; E86.0 Dehydration; I95.1 Orthostatic hypotension; N18.30 Chronic kidney disease, stage 3 unspecified; E11.22 Type 2 diabetes mellitus with diabetic chronic kidney disease; I12.9 Hypertensive chronic kidney disease with stage 1 through stage 4 chronic kidney disease, or unspecified chronic kidney disease; K22.0 Achalasia of cardia; I48.91 Unspecified atrial fibrillation; E83.42 Hypomagnesemia; E78.5 Hyperlipidemia, unspecified; E87.6 Hypokalemia; K21.9 Gastro-esophageal reflux disease without esophagitis; M10.9 Gout, unspecified; Z86.73 Personal history of transient ischemic attack (TIA), and cerebral infarction without residual deficits; K22.5 Diverticulum of esophagus, acquired; Z79.01 Long term (current) use of anticoagulants; I25.2 Old myocardial infarction; Z79.899 Other long term (current) drug therapy; Z79.82 Long term (current) use of aspirin; D63.1 Anemia in chronic kidney disease; G47.33 Obstructive sleep apnea (adult) (pediatric)

== ENCOUNTER → 2023-10-21 | Outpatient (REF) | payer MEDICARE ==
[~2023-10-21] MED LIST changes: +ACET-683 PO; +AMOX875T2 PEG; +DOXY100T PEG; +FAMO40SU9 PEG; +HYDR-161 PO; -HYDR-3911 PO; -HYDR10TAB PO; +HYDR50TA46 PO; -METOPROLOL SUCC *XL* 25MG TAB (TopROL *XL*) PO SCH
== END ==
LOC: M LAB REF 17:34
PROVIDERS: ATTEND Family Medicine
DX: I12.9 Hypertensive chronic kidney disease with stage 1 through stage 4 chronic kidney disease, or unspecified chronic kidney disease (principal)

== ENCOUNTER → 2024-03-22 | Outpatient (REF) | payer MEDICARE ==
[~2024-03-22] MED LIST changes: -ASPI-161 PO; +ASPI-615 PO; -HYDR25TA PO; +HYDR25TA88 PO
== END ==
LOC: M LAB REF 16:20
PROVIDERS: ATTEND Family Medicine
DX: N18.31 Chronic kidney disease, stage 3a (principal); I25.10 Atherosclerotic heart disease of native coronary artery without angina pectoris

== ENCOUNTER → 2024-10-12 | Outpatient (CLI) | payer MEDICARE ==
[~2024-10-12] MED LIST changes: -MIDO2.5T PO; +MIDO2.5T3 PO; +PROHANCE 279.3MG/ML 15ML VIAL As Ordered ONE
== END ==
LOC: M RAD 07:59
PROVIDERS: ATTEND Nurse Practitioner Family
DX: K86.2 Cyst of pancreas (principal)
CPT/HCPCS: 74183; A9576

== ENCOUNTER → 2025-04-09 | Outpatient (CLI) | payer MEDICARE ==
[~2025-04-09] MED LIST changes: -PROHANCE 279.3MG/ML 15ML VIAL As Ordered ONE
== END ==
LOC: M RAD 11:03
PROVIDERS: ATTEND Urology
DX: N28.1 Cyst of kidney, acquired (principal)

== ENCOUNTER → 2025-05-10 | Outpatient (CLI) | payer MEDICARE ==
[~2025-05-10] MED LIST changes: +CAPE1TAB2 PO; +CREO3600 PO; +FAMO1TAB11 PO; +HUMA100I5 SQ; +LANTINJ4 SC; +ONDA-84 PO; +PROC10TA5 PO
[2025-05-10 17:53] LABS: BASO # 0.0 10^3/uL (0.0-0.2); BASO % 0.7 % (0.0-1.0); EOS # 0.1 10^3/uL (0.0-0.5); EOS % 2.4 % (0.0-3.0); LYMPH # 1.4 10^3/uL (1.5-5.0); LYMPH % 24.4 % (24.0-44.0); MONO # 0.5 10^3/uL (0.0-0.8); MONO % 7.8 % (2.0-8.0); NEUTROPHILS # 3.8 10^3/uL (1.5-8.5); NEUTROPHILS % 64.4 % (36.0-66.0); PLATELET COUNT, AUTOMATED 259 10^3/uL (150-450)
[2025-05-10 18:04] LABS: ALT/SGPT 36.0 U/L (7.0-40); AST/SGOT 26.0 U/L (<34); CALCIUM LEVEL 8.4 MG/DL (8.3-10.6); CARBON DIOXIDE LEVEL 23.0 MMOL/L (20-31); CHLORIDE LEVEL 110.0 MMOL/L (98-107); CREATININE FOR GFR 1.94 MG/DL (0.70-1.30); GLOMERULAR FILTRATION RATE 35.2 (>42); POTASSIUM SERUM 4.4 MMOL/L (3.5-5.1); SODIUM LEVEL 144.0 MMOL/L (136-145)
[2025-05-10 18:31] LABS: CA19-9 TUMOR MARKER,CARBOHYDRA 62.6 U/ML (<35.0)
== END ==
LOC: M PLALAB 15:25
PROVIDERS: ATTEND Hospitalist
DX: C25.9 Malignant neoplasm of pancreas, unspecified (principal)

== ENCOUNTER → 2025-05-15 | Outpatient (CLI) | payer MEDICARE | LOC: M ONCR 09:45 | PROVIDERS: ATTEND General Practice | DX: C25.0 Malignant neoplasm of head of pancreas (principal); Z79.01 Long term (current) use of anticoagulants; Z79.4 Long term (current) use of insulin; Z79.82 Long term (current) use of aspirin; Z79.84 Long term (current) use of oral hypoglycemic drugs; Z79.899 Other long term (current) drug therapy; Z87.891 Personal history of nicotine dependence; Z98.890 Other specified postprocedural states ==

== ENCOUNTER 2025-05-31 14:08 | Outpatient (RCR) | payer MEDICARE | END 2025-06-02 | LOC: M ONCR 14:08 | PROVIDERS: ATTEND General Practice | DX: Z51.0 Encounter for antineoplastic radiation therapy (principal); C25.0 Malignant neoplasm of head of pancreas ==

== ENCOUNTER → 2025-06-04 | Outpatient (REF) | payer MEDICARE | LOC: M LAB REF 14:53 | PROVIDERS: ATTEND Nurse Practitioner Family | DX: C25.9 Malignant neoplasm of pancreas, unspecified (principal) ==

== ENCOUNTER → 2025-06-12 | Outpatient (REF) | payer MEDICARE ==
[2025-06-12 15:19] LABS: BASO # 0.0 10^3/uL (0.0-0.2); BASO % 0.2 % (0.0-1.0); EOS # 0.2 10^3/uL (0.0-0.5); EOS % 3.1 % (0.0-3.0); LYMPH # 0.3 10^3/uL (1.5-5.0); LYMPH % 6.0 % (24.0-44.0); MONO # 0.5 10^3/uL (0.0-0.8); MONO % 8.6 % (2.0-8.0); NEUTROPHILS # 4.3 10^3/uL (1.5-8.5); NEUTROPHILS % 81.5 % (36.0-66.0); PLATELET COUNT, AUTOMATED 153 10^3/uL (150-450)
[2025-06-12 15:52] LABS: ALT/SGPT 13.0 U/L (7.0-40); AST/SGOT 17.0 U/L (<34); CALCIUM LEVEL 8.4 MG/DL (8.3-10.6); CARBON DIOXIDE LEVEL 21.0 MMOL/L (20-31); CHLORIDE LEVEL 108.0 MMOL/L (98-107); CREATININE FOR GFR 1.76 MG/DL (0.70-1.30); GLOMERULAR FILTRATION RATE 39.6 (>42); POTASSIUM SERUM 4.2 MMOL/L (3.5-5.1); SODIUM LEVEL 141.0 MMOL/L (136-145)
== END ==
LOC: M LAB REF 15:04
PROVIDERS: ATTEND Nurse Practitioner Family
DX: C25.9 Malignant neoplasm of pancreas, unspecified (principal)

== ENCOUNTER → 2025-07-02 | Outpatient (RCR) | payer MEDICARE ==
[~2025-07-02] MED LIST changes: +B-1100TA2 PO; +B-12100010 PO; +FERR324T2 PO; +GLUC3SPR5; +MAGN400T2 PO; +MAGN400T33 PO; +POTA-298 PO; +VITA100016 PO
== END ==
LOC: M ONCR 06-04 13:54
PROVIDERS: ATTEND General Practice
DX: Z51.0 Encounter for antineoplastic radiation therapy (principal); C25.0 Malignant neoplasm of head of pancreas

== ENCOUNTER 2025-07-03 11:14 | Observation (INO) | payer MEDICARE ==
[~2025-07-03] VITALS: Ht 172.7 cm; Wt 65.4 kg
[~2025-07-03 11:14] MED LIST changes: -GLUC3SPR5; -MAGN400T33 PO
[2025-07-03 11:57] LABS: BASO # 0.1 10^3/uL (0.0-0.2); BASO % 1.0 % (0.0-1.0); EOS # 0.1 10^3/uL (0.0-0.5); EOS % 1.6 % (0.0-3.0); LYMPH # 0.3 10^3/uL (1.5-5.0); LYMPH % 3.7 % (24.0-44.0); MONO # 0.9 10^3/uL (0.0-0.8); MONO % 12.4 % (2.0-8.0); NEUTROPHILS # 5.6 10^3/uL (1.5-8.5); NEUTROPHILS % 80.6 % (36.0-66.0); PLATELET COUNT, AUTOMATED 260 10^3/uL (150-450)
[2025-07-03 12:15] LABS: CALCIUM LEVEL 7.8 MG/DL (8.3-10.6); CARBON DIOXIDE LEVEL 29.0 MMOL/L (20-31); CHLORIDE LEVEL 105.0 MMOL/L (98-107); CREATININE FOR GFR 1.7 MG/DL (0.70-1.30); GLOMERULAR FILTRATION RATE 41.3 (>42); POTASSIUM SERUM 4.9 MMOL/L (3.5-5.1); SODIUM LEVEL 142.0 MMOL/L (136-145)
[2025-07-03 13:01] LABS: MAGNESIUM LEVEL 1.4 MG/DL (1.8-2.4)
[2025-07-03] MEDS ORDERED: MAGN400T33 PO (13:31)
[2025-07-03] MEDS ORDERED: POTA-298 PO (13:31)
[2025-07-03] MEDS ORDERED: GLUC3SPR5 (13:31)
[2025-07-03] MEDS ORDERED: HOME MED LIST COMPLETE! XX SCH (13:35)
[2025-07-03] MEDS: MAG SULF 1GM/100ML (MAG RUN) 1 GM in IV 1 EA IV ONE ×2 (13:39→14:42)
[2025-07-03] MEDS ORDERED: PROCHLORPERAZINE 5MG TAB PO PRN (17:10)
[2025-07-03] MEDS ORDERED: ACETAMINOPHEN 500 MG TAB PO PRN (17:10)
[2025-07-03] MEDS ORDERED: ONDANSETRON 4MG TAB PO PRN (17:10)
[2025-07-03] MEDS ORDERED: GLUCOSE 4 GM CHEW PO PRN (17:15)
[2025-07-03] MEDS ORDERED: DEXTROSE 50% 50 ML SYRINGE IV PRN (17:15)
[2025-07-03] MEDS ORDERED: GLUCAGON INJ 1 MG VIAL SC PRN (17:15)
[2025-07-03] MEDS ORDERED: INSULIN LISPRO (NovoLOG) PER UNIT SC SCH (17:30)
[2025-07-03] MEDS: LR 1,000 ML IV SCH (17:49)
[2025-07-03] MEDS: CREON-24 CAPSULE (PANCRELIPASE) PO SCH (17:57)
[2025-07-03 18:16] LABS: ESTIMATED AVERAGE GLUCOSE 157.0 MG/DL (60-110)
[2025-07-03 19:50] VITALS: BP 162/91; TEMP 98.8; O2SAT 97
[2025-07-03] MEDS: INSULIN LISPRO (NovoLOG) PER UNIT SC SCH ×2 (20:25→21:00)
[2025-07-03] MEDS: APIXABAN 5 MG TAB PO SCH (20:34)
[2025-07-03] MEDS: ATORVASTATIN 20 MG TAB PO SCH (20:34)
[2025-07-03] MEDS: FAMOTIDINE 20 MG TAB PO SCH (20:34)
[2025-07-03] MEDS: MAGNESIUM OXIDE 400 MG TAB PO SCH (20:34)
[2025-07-04 04:33] VITALS: BP 159/90; TEMP 98.8; O2SAT 97
[2025-07-04 06:39] LABS: PLATELET COUNT, AUTOMATED 235 10^3/uL (150-450)
[2025-07-04 07:12] LABS: CALCIUM LEVEL 7.5 MG/DL (8.3-10.6); CARBON DIOXIDE LEVEL 31.0 MMOL/L (20-31); CHLORIDE LEVEL 104.0 MMOL/L (98-107); CREATININE FOR GFR 1.54 MG/DL (0.70-1.30); GLOMERULAR FILTRATION RATE 46.5 (>42); POTASSIUM SERUM 3.9 MMOL/L (3.5-5.1); SODIUM LEVEL 142.0 MMOL/L (136-145)
[2025-07-04] MEDS: INSULIN LISPRO (NovoLOG) PER UNIT SC SCH (07:30)
[2025-07-04 08:00] VITALS: BP 160/90
[2025-07-04] MEDS: MIDODRINE 2.5 MG TAB PO SCH (08:00)
[2025-07-04] MEDS: POTASSIUM CHLORIDE 10MEQ SR TABLET PO SCH (08:33)
[2025-07-04] MEDS: VITAMIN D 1,000 INTERNATIONAL UNITS TABLET PO SCH (08:33)
[2025-07-04] MEDS: CYANOCOBALAMIN 500 MCG TAB PO SCH (08:33)
[2025-07-04] MEDS: THIAMINE 100 MG TAB PO SCH (08:34)
[2025-07-04] MEDS ORDERED: HUMA100I5 SQ (11:52)
== END 2025-07-04 13:50 | disposition home or self-care (01) ==
LOC: M ED 11:14 → EDBD 11:14 → M ED INP 11:15 → M MSPAV 19:51
PROVIDERS: ADMIT Student in an Organized Health Care Education/Training Program; ATTEND Student in an Organized Health Care Education/Training Program
DX: E13.649 Other specified diabetes mellitus with hypoglycemia without coma (principal); C25.9 Malignant neoplasm of pancreas, unspecified; I10 Essential (primary) hypertension; E86.0 Dehydration; I95.1 Orthostatic hypotension; I48.20 Chronic atrial fibrillation, unspecified; E78.5 Hyperlipidemia, unspecified; K21.9 Gastro-esophageal reflux disease without esophagitis; R11.0 Nausea; E83.42 Hypomagnesemia; Z79.01 Long term (current) use of anticoagulants; Z79.4 Long term (current) use of insulin; Z79.84 Long term (current) use of oral hypoglycemic drugs; Z79.899 Other long term (current) drug therapy; I69.320 Aphasia following cerebral infarction
CPT/HCPCS: 36415; 70450; 71045; 71250; 80048; 83036; 83735; 85025; 85027; 93005; 96365; 96366; 99285; G0378; J3475

== ENCOUNTER → 2025-07-08 | Outpatient (REF) | payer MEDICARE ==
[~2025-07-08] MED LIST changes: +GLUC3SPR5; +MAGN400T33 PO
[2025-07-08 15:17] LABS: BASO # 0.1 10^3/uL (0.0-0.2); BASO % 1.1 % (0.0-1.0); EOS # 0.2 10^3/uL (0.0-0.5); EOS % 3.4 % (0.0-3.0); LYMPH # 0.4 10^3/uL (1.5-5.0); LYMPH % 9.2 % (24.0-44.0); MONO # 0.7 10^3/uL (0.0-0.8); MONO % 14.5 % (2.0-8.0); NEUTROPHILS # 3.3 10^3/uL (1.5-8.5); NEUTROPHILS % 70.7 % (36.0-66.0); PLATELET COUNT, AUTOMATED 214 10^3/uL (150-450)
[2025-07-08 15:48] LABS: ALT/SGPT 11.0 U/L (7.0-40); AST/SGOT 20.0 U/L (<34); CALCIUM LEVEL 7.5 MG/DL (8.3-10.6); CARBON DIOXIDE LEVEL 24.0 MMOL/L (20-31); CHLORIDE LEVEL 110.0 MMOL/L (98-107); CREATININE FOR GFR 1.69 MG/DL (0.70-1.30); GLOMERULAR FILTRATION RATE 41.6 (>42); POTASSIUM SERUM 3.9 MMOL/L (3.5-5.1); SODIUM LEVEL 144.0 MMOL/L (136-145)
[2025-07-08 16:08] LABS: CA19-9 TUMOR MARKER,CARBOHYDRA 45.3 U/ML (<35.0)
== END ==
LOC: M LAB REF 14:58
PROVIDERS: ATTEND Hospitalist
DX: C25.9 Malignant neoplasm of pancreas, unspecified (principal)

== ENCOUNTER 2025-07-10 14:05 | Outpatient (RCR) | payer MEDICARE | END 2025-08-02 | LOC: M ONCR 14:05 | PROVIDERS: ATTEND General Practice | DX: Z51.0 Encounter for antineoplastic radiation therapy (principal); C25.0 Malignant neoplasm of head of pancreas ==

== ENCOUNTER → 2025-07-26 | Outpatient (CLI) | payer MEDICARE | LOC: M ONCR 14:11 | PROVIDERS: ATTEND General Practice | DX: Z01.89 Encounter for other specified special examinations (principal); Z92.21 Personal history of antineoplastic chemotherapy; Z92.3 Personal history of irradiation ==

== ENCOUNTER → 2025-07-26 | Outpatient (REF) | payer MEDICARE ==
[2025-07-26 15:17] LABS: APPEARANCE, URINE CLEAR (CLEAR); BACTERIA, URINE AUTO NEGATIVE (NEGATIVE); BILIRUBIN, URINE AUTO NEGATIVE (NEGATIVE); BLOOD, URINE BLOOD NEGATIVE (NEGATIVE); GLUCOSE, URINE (UA) AUTO NEGATIVE (NEGATIVE); KETONE, URINE AUTO NEGATIVE (NEGATIVE); LEUKOCYTE ESTERASE, URINE AUTO NEGATIVE (NEGATIVE); MUCUS, URINE SMALL (NEGATIVE); NITRITE, URINE AUTO NEGATIVE (NEGATIVE); PROTEIN, URINE AUTO NEGATIVE (NEGATIVE); RBC, URINE AUTO 1 /HPF (0-3); SPECIFIC GRAVITY URINE AUTO 1.012 (1.002-1.035); SQUAMOUS EPITHELIAL CELL UR AU 0 /HPF (0-6); UROBILINOGEN, URINE AUTO 0.2 mg/dL (0.0-2.0); WBC, URINE AUTO 2 /HPF (0-3)
== END ==
LOC: M LAB REF 14:55
PROVIDERS: ATTEND Family Medicine
DX: R53.1 Weakness (principal); R53.83 Other fatigue

== ENCOUNTER 2025-08-04 17:38 | Emergency (ER) | payer MEDICARE ==
[2025-08-04 18:49] LABS: BASO # 0.0 10^3/uL (0.0-0.2); BASO % 0.2 % (0.0-1.0); EOS # 0.1 10^3/uL (0.0-0.5); EOS % 0.9 % (0.0-3.0); LYMPH # 0.3 10^3/uL (1.5-5.0); LYMPH % 5.5 % (24.0-44.0); MONO # 0.6 10^3/uL (0.0-0.8); MONO % 11.8 % (2.0-8.0); NEUTROPHILS # 4.3 10^3/uL (1.5-8.5); NEUTROPHILS % 81.2 % (36.0-66.0); PLATELET COUNT, AUTOMATED 193 10^3/uL (150-450)
[2025-08-04 18:56] LABS: INR 1.4
[2025-08-04 18:59] LABS: CALCIUM LEVEL 7.7 MG/DL (8.3-10.6); CARBON DIOXIDE LEVEL 17.0 MMOL/L (20-31); CHLORIDE LEVEL 110.0 MMOL/L (98-107); CREATININE FOR GFR 1.48 MG/DL (0.70-1.30); GLOMERULAR FILTRATION RATE 48.4 (>42); POTASSIUM SERUM 4.0 MMOL/L (3.5-5.1); SODIUM LEVEL 138.0 MMOL/L (136-145)
[2025-08-04] MEDS: ACETAMINOPHEN 325 MG TAB PO ONE (19:24)
[2025-08-04 20:54] VITALS: TEMP 99
[2025-08-04 21:00] VITALS: BP 163/87; O2SAT 96
== END 2025-08-04 21:34 | disposition home or self-care (01) ==
LOC: M ED 17:38
DX: S00.03XA Contusion of scalp, initial encounter (principal); W01.198A Fall on same level from slipping, tripping and stumbling with subsequent striking against other object, initial encounter; I44.4 Left anterior fascicular block; I10 Essential (primary) hypertension; E11.9 Type 2 diabetes mellitus without complications; K21.9 Gastro-esophageal reflux disease without esophagitis; G47.33 Obstructive sleep apnea (adult) (pediatric); Z86.79 Personal history of other diseases of the circulatory system; Z79.01 Long term (current) use of anticoagulants; Z86.73 Personal history of transient ischemic attack (TIA), and cerebral infarction without residual deficits; Y92.009 Unspecified place in unspecified non-institutional (private) residence as the place of occurrence of the external cause; Y93.89 Activity, other specified; Y99.9 Unspecified external cause status

== ENCOUNTER → 2025-08-12 | Outpatient (CLI) | payer MEDICARE | LOC: M RAD 12:06 | PROVIDERS: ATTEND Physician Assistant | DX: S06.5X0S Traumatic subdural hemorrhage without loss of consciousness, sequela (principal); Z96.1 Presence of intraocular lens; R90.82 White matter disease, unspecified ==

== ENCOUNTER → 2025-08-19 | Outpatient (CLI) | payer MEDICARE | LOC: M PLAIMG 11:44 | PROVIDERS: ATTEND Neurological Surgery | DX: S06.5X0A Traumatic subdural hemorrhage without loss of consciousness, initial encounter (principal); X58.XXXA Exposure to other specified factors, initial encounter; Y92.9 Unspecified place or not applicable ==

== ENCOUNTER → 2025-09-11 | Outpatient (CLI) | payer MEDICARE ==
[~2025-09-11] MED LIST changes: +ISOVUE-370 76% 100 ML VIAL As Ordered ONE
== END ==
LOC: M RAD 13:38
PROVIDERS: ATTEND Nurse Practitioner Family
DX: C25.9 Malignant neoplasm of pancreas, unspecified (principal)
CPT/HCPCS: 71260; 74177; Q9967

== ENCOUNTER → 2025-09-13 | Outpatient (CLI) | payer MEDICARE, OTHER ==
[~2025-09-13] MED LIST changes: -ISOVUE-370 76% 100 ML VIAL As Ordered ONE
== END ==
LOC: M ONCR 13:29
PROVIDERS: ATTEND General Practice
DX: C25.0 Malignant neoplasm of head of pancreas (principal); Z87.891 Personal history of nicotine dependence; Z92.21 Personal history of antineoplastic chemotherapy; Z92.3 Personal history of irradiation; Z79.01 Long term (current) use of anticoagulants; Z79.4 Long term (current) use of insulin; Z79.899 Other long term (current) drug therapy